=== PATIENT | male | born 1935 | race Two or more races ===

== ENCOUNTER 2016-06-05 19:45 | Inpatient (IN) | payer MEDICARE, OTHER ==
[~2016-06-05] VITALS: Ht 172.7 cm; Wt 100.0 kg
[2016-06-05] MEDS ORDERED: CEFEPIME 2GM/50 ML (PMX) 50 ML IVPB STA (19:48)
[2016-06-05] MEDS ORDERED: SOD CHLORIDE 0.9% 1,000 ML IV STA ×3 (19:48)
[2016-06-05 19:54] VITALS: Ht 172.7 cm; Wt 100.0 kg
[2016-06-05] MEDS ORDERED: VANCOMYCIN 1 GM (PMX) 250 ML IVPB ONE (20:00)
[2016-06-05] MEDS ORDERED: ACETAMINOPHEN 650 MG SUPP PR ONE (20:00)
[2016-06-05 20:39] LABS: ADD UMIC YES; INR 0.92; PARTIAL THROMBOPLASTIN TIME 27.8 Sec (25.0-35.0); PROTIME 12.4 Sec (12.2-14.2); URINE BILIRUBIN (Dip) NEGATIVE (NEGATIVE); URINE BLOOD (Dip) 3+ (NEGATIVE); URINE COLOR LT. YELLOW (YELLOW); URINE GLUCOSE (Dip) NEGATIVE (NEGATIVE); URINE KETONES (Dip) NEGATIVE (NEGATIVE); URINE LEUKOCYTE ESTERASE (Dip) NEGATIVE (NEGATIVE); URINE NITRITE (Dip) NEGATIVE (NEGATIVE); URINE TOTAL PROTEIN (Dip) NEGATIVE (NEGATIVE); URINE UROBILINOGEN (Dip) 0.2 E.U./dL (0.1-1.0)
[2016-06-05 20:40] LABS: BASOPHILS % 0.2 % (0.0-2.0); EOSINOPHILS # 0.2 10^3/ul (0.0-0.5); EOSINOPHILS % 2.2 % (0.0-7.0); HEMATOCRIT 34.5 % (42.0-52.0); HEMOGLOBIN 11.4 g/dl (14.0-18.0); LYMPHOCYTES # 2.1 10^3/ul (0.8-2.9); LYMPHOCYTES % 24.6 % (15.0-51.0); MEAN CORPUSCULAR HEMOGLOBIN 28.4 pg (29.0-33.0); MEAN CORPUSCULAR HGB CONC 33.1 g/dl (32.0-37.0); MEAN CORPUSCULAR VOLUME 85.8 fl (82.0-101.0); MEAN PLATELET VOLUME 8.7 fl (7.4-10.4); MONOCYTE # 0.7 10^3/ul (0.3-0.9); MONOCYTES % 8.5 % (0.0-11.0); NEUTROPHIL # 5.4 10^3/ul (1.6-7.5); NEUTROPHILS % 64.5 % (39.0-77.0); PLATELET COUNT 297 10^3/UL (140-440); RED BLOOD COUNT 4.01 10^6/ul (4.70-6.10); RED CELL DISTRIBUTION WIDTH 16.9 % (11.5-14.5); UNCORRECTED WBC 8.4 10^3/ul (4.8-10.8); WHITE BLOOD COUNT 8.4 10^3/ul (4.8-10.8)
[2016-06-05 20:41] LABS: CONDITION 1; LH ANALYZER COMMENTS 1
[2016-06-05 20:54] LABS: ALBUMIN 3.5 g/dl (3.3-4.9); BACTERIA,URINE RARE; CHLORIDE 99 mmol/L (97-110); POTASSIUM 3.6 mmol/L (3.5-5.1); SODIUM 140 mmol/L (135-144); SQUAMOUS EPITHELIAL CELL,UR RARE
[2016-06-05 20:56] LABS: CREATININE 1.23 mg/dl (0.61-1.24)
[2016-06-05 20:57] LABS: ALANINE AMINOTRANSFERASE 16 IU/L (13-69); ALBUMIN/GLOBULIN RATIO 0.97; ALKALINE PHOSPHATASE 71 IU/L (42-121); ANION GAP 20 (8-16); ASPARTATE AMINO TRANSFERASE 18 IU/L (15-46); BILIRUBIN,INDIRECT 0.3 mg/dl (0-1.1); BILIRUBIN,TOTAL 0.3 mg/dl (0.2-1.3); BLOOD UREA NITROGEN 16 mg/dl (7-20); CARBON DIOXIDE 25 mmol/L (21-31); GLUCOSE 273 mg/dl (70-220); TOTAL PROTEIN 7.1 g/dl (6.1-8.1)
[2016-06-05 20:58] LABS: CALCIUM 9.2 mg/dl (8.4-10.2)
[2016-06-05 21:29] LABS: TROPONIN-I < 0.012 ng/ml (0.00-0.12)
--- NOTE | 2016-06-05 22:18 | RADRPT ---
PROCEDURE: Chest. CLINICAL INDICATION: Chest pain. TECHNIQUE: Single frontal view of the chest was obtained. COMPARISON: None. FINDINGS: The cardiac silhouette is enlarged. The aortic arch is calcified. There is moderate pulmonary veno us congestion. There is mild bibasilar atelectasis and small pleural effusions. There is no pneumo thorax. IMPRESSION: Moderate cardiomegaly and pulmonary venous congestion. Mild bibasilar atelectasis and small pleural effusions. Aortic atherosclerosis. .Gerardo Edwards MD, MD Date Time Electronically viewed and signed by .Gerardo Edwards MD, on 06/05/2016 22:17 .T/
[2016-06-05] MEDS ORDERED: VANCOMYCIN IV PER PHARMACY XX SCH (22:30)
[2016-06-05] MEDS ORDERED: ONDANSETRON 4 MG INJ IV PRN ×2 (22:30→23:00)
[2016-06-05] MEDS ORDERED: FUROSEMIDE 20 MG INJ IV ONE (22:30)
[2016-06-05] MEDS ORDERED: ACETAMINOPHEN 325 MG TAB PO PRN (22:30)
--- NOTE | 2016-06-05 22:47 | HP ---
Date/Time of Note Date/Time of Note DATE: 06/05/16 TIME: 22:38 Assessment/Plan VTE Prophylaxis VTE Prophylaxis Intervention: LMWH Assessment/Plan Assessment/Plan 80 yo M with 1. Altered mentation Baseline unknown 2. acute resp failure 3. CHF exacerbation 4. Sepsis with lactic acidosis 5. Probable Bilateral pneumonia 6. Uncontrolled DM 7. Hypochromic anemia 8. 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 Obesity 10. HTN: Suboptimal control 11. probable UTI contributing to #4 12. CAD s/p PCI + stent in the past PLAN: admit tele / empiric abx / gentle diuresis / ACS r/o / 2D echo / acosta culture NPO for now till resp status improves / SSI / swallow eval / hold hypoglycemics while NPO pain control/ antiemetics/ antipyretics/ supportive care Further evaluation and treatment will be based on clinical course Full discussion with care team done. All questions Answered Please also see orders. Total time spent on this evaluation >35mins HPI/ROS Admit Date/Time Admit Date/Time 06/05/16 Hx of Present Illness PRESENTING COMPLAINT: confusion HISTORY OF PRESENTING COMPLAINT: 80 yo M who was brought in by his family because of confusion and was found to be hypoxic in the ER. He usually resides in a senior care. No other hx is obtainable d/t patient's mental status. He was saturating 88% on RA and required O2 via NRB mask at 15L to maintain his sats. ROS Subjective hx not possible: other (patient is confused) PMH/Family/Social Past Medical History * HTN * DM * CAD Past Surgical History * PCI + stent placement Family History Significant Family History: other (unknown) Social History Alcohol Use: other Smoking Status: Unknown if ever smoked Drug Use: none Exam/Review of Systems Vital Signs Vitals Vital Signs Date Time Temp Pulse Resp B/P Pulse Ox O2 Delivery O2 Flow Rate FiO2 06/05/16 20:00 Non Rebreather 15 06/05/16 19:54 100.3 101 22 152/95 95 Exam Constitutional: alert, other (obese, confused, will follow repeated commands), No oriented Psych: other (unable to assess) Eyes: PERRL ENMT: No mucosa pink and moist (dry) Neck: No jvd Respiratory: crackles/rales, diminished breath sounds, wheezing Cardiovascular: regular rate and rhythm, No murmurs/extra sounds Gastrointestinal: bowel sounds, other (Obese), soft Extremities: No edema Neurological: lethargic, No nl mental status Labs Result Diagram: 06/05/16200406/05/162004 Medications Medications Current Medications Miscellaneous Information (* Miscellaneous Pharmacy Order) HYPOGLYCEMIA PROTOCOL w... ONCE ONCE XX ; Start 06/05/16 at 22:30; Stop 06/05/16 at 22:31; Status UNV Miscellaneous Information Discontinue all previ... ONCE ONCE XX ; Start at 22:30; Stop 06/05/16 at 22:31; Status UNV Cefepime HCl (Maxipime 1gm/50 ml (Pmx)) 50 ml @ 100 mls/hr Q12 IVPB ; Start 06/06/16 at 09:00; Status UNV Furosemide 20 mg 20 mg ONCE ONCE IV ; Start 06/05/16 at 22:30; Stop 06/05/16 at 22:31; Status UNV Sodium Chloride (NS) 1,000 ml @ 80 mls/hr [id number] IV ; Start 06/05/16 at 22:30; Stop 06/06/16 at 17:14; Status UNV Acetaminophen (Tylenol Tab) 650 mg Q6H PRN PO PAIN AND OR ELEVATED TEMP; Start 06/05/16 at 22:30; Status UNV Docusate Sodium (Colace) 100 mg BID PO ; Start 06/06/16 at 09:00; Status UNV Procedures Procedures Laboratory Tests Test 06/05/16 20:05 06/05/16 22:05 06/05/16 22:40 06/05/16 23:43 Activated Partial Thromboplast Time 27.8Sec Alanine Aminotransferase (ALT/SGPT) 16IU/L Albumin 3.5g/dl Albumin/Globulin Ratio 0.97 Alkaline Phosphatase 71IU/L Anion Gap 20 Aspartate Amino Transf (AST/SGOT) 18IU/L Basophils # 0.010^3/ul Basophils % 0.2% Blood Morphology Comment Blood Urea Nitrogen 16mg/dl Calcium Level 9.2mg/dl Carbon Dioxide Level 25mmol/L Chloride Level 99mmol/L Creatinine 1.23mg/dl Direct Bilirubin 0.00mg/dl Eosinophils # 0.210^3/ul Eosinophils % 2.2% Free Thyroxine 1.15ng/dl Globulin 3.60g/dl Glucose Level 273mg/dl Hematocrit 34.5% Hemoglobin 11.4g/dl INR International Normalized Ratio 0.92 Indirect Bilirubin 0.3mg/dl Lactic Acid Level 2.4mmol/L 2.3mmol/L 1.5mmol/L Lymphocytes # 2.110^3/ul Lymphocytes % 24.6% Mean Corpuscular Hemoglobin 28.4pg Mean Corpuscular Hemoglobin Concent 33.1g/dl Mean Corpuscular Volume 85.8fl Mean Platelet Volume 8.7fl Monocytes # 0.710^3/ul Monocytes % 8.5% Neutrophils # 5.410^3/ul Neutrophils % 64.5% Nucleated Red Blood Cells # 0.010^3/ul Nucleated Red Blood Cells % 0.0/100WBC Platelet Count 75064^3/UL Potassium Level 3.6mmol/L Prothrombin Time 12.4Sec Prothrombin Time Ratio 1.0 Red Blood Count 4.0110^6/ul Red Cell Distribution Width 16.9% Sodium Level 140mmol/L Thyroid Stimulating Hormone (TSH) 3.240MIU/L Total Bilirubin 0.3mg/dl Total Protein 7.1g/dl Troponin I < 0.012ng/ml < 0.012ng/ml Urine Bacteria RARE Urine Bilirubin NEGATIVE Urine Clarity CLEAR Urine Color LT. YELLOW Urine Glucose NEGATIVE% Urine Hemoglobin 3+ Urine Ketones NEGATIVE Urine Leukocyte Esterase NEGATIVE Urine Microscopic RBC 5-10/HPF Urine Microscopic WBC 0-2/HPF Urine Nitrite NEGATIVE Urine Specific [place] 1.020 Urine Squamous Epithelial Cells RARE Urine Total Protein NEGATIVE Urine Urobilinogen 0.2 E.U./dL Urine pH 5.5 White Blood Count 8.410^3/ul Arterial Blood HCO3 23.5mmol/L Arterial Blood Base Excess -1.1mmol/L Arterial Blood Oxygen Saturation 93.9mmHG Rios Test ACCEPTAB Arterial Blood Gas Puncture Site Left Radial Arterial Blood Carboxyhemoglobin 0.3% Arterial Blood Date Drawn 06/06/2016 12:00:21 AM Arterial Blood Methemoglobin 0.1% Arterial Blood pCO2 (Temp correct) 38.7mmhg Arterial Blood pH (Temp corrected) 7.401 Arterial Blood pO2 (Temp corrected) 73.0mmHG Blood Gas A-a O2 Differential 160.5mmHg Blood Gas Modality NASAL CANNULA Blood Gas Notified Time 06/06/2016 12:12:21 AM Blood Gas Notified Whom ARIADNE Blood Gas Specimen Source Blood arterial Blood Gas Temperature 37.0C FiO2 39.0% Oxyhemoglobin Percent 93.5% Total Hemoglobin 11.2g/dl Creatine Kinase 22IU/L Creatine Kinase Index 2.0 Creatinine Kinase MB (Mass) 0.44ng/ml Test 06/06/16 05:45 06/06/16 07:33 Anion Gap Pending Blood Urea Nitrogen Pending Calcium Level Pending Carbon Dioxide Level Pending Chloride Level 101mmol/L Cholesterol Level Pending Cholesterol/HDL Ratio Pending Creatine Kinase 29IU/L Creatine Kinase Index 1.8 Creatinine Pending Creatinine Kinase MB (Mass) 0.52ng/ml Glucose Level Pending HDL Cholesterol Pending LDL Cholesterol, Calculated Pending Magnesium Level Pending Potassium Level 3.9mmol/L Sodium Level 142mmol/L Triglycerides Level Pending Troponin I < 0.012ng/ml Bedside Glucose 166mg/dL PROCEDURE: Chest. CLINICAL INDICATION: Chest pain. TECHNIQUE: Single frontal view of the chest was obtained. COMPARISON: None. FINDINGS: The cardiac silhouette is enlarged. The aortic arch is calcified. There is moderate pulmonary venous congestion. There is mild bibasilar atelectasis and small pleural effusions. There is no pneumothorax. IMPRESSION: Moderate cardiomegaly and pulmonary venous congestion. Mild bibasilar atelectasis and small pleural effusions. Aortic atherosclerosis. .Gerardo Edwards MD, Date Time Electronically viewed and signed by .Gerardo Edwards MD, MD on 06/05/2016 22:17 PROCEDURE: CT Brain without contrast. CLINICAL INDICATION: Sepsis.. TECHNIQUE: A CT of the brain was performed on a multislice detector CT scanner utilizing axial sections from the skull base through the vertex without contrast. Images were reviewed on a high-resolution PACS workstation. Exam CTDlvol = 45 mGy and DLP = 720 mGy-cm. COMPARISON: None available FINDINGS: There is age appropriate central and peripheral atrophy. There is no midline shift. There is confluent supratentorial periventricular and subcortical white matter hypodensities. There is no definite acute stroke. There old right basal ganglia thalamic lacunar infarcts.. There is no intracranial hemorrhage or abnormal extra-axial fluid collection. Visualized paranasal sinuses are clear. There is fluid in the right mastoid air cells. An old fracture of the medial wall of the right orbit. There is a 1.8 cm a cutaneous nodule in the anterior aspect of the right frontal region near the vertex, likely a cyst. IMPRESSION: 1. No acute intracranial abnormality. 2. Old right basal ganglia and thalamic lacunar infarcts. 3. Nonspecific white matter changes most commonly seen with microvascular ischemic disease. 4. Fluid in the right mastoid air cells. 5. Probable sebaceous cyst in the right frontal region near the vertex. RPTAT: HMVK .Scott Ayers MD, Date Time Electronically viewed and signed by .Scott Ayers MD, on 06/05/2016 23:36 EMANUEL ANTHONY Jun 05, 2016 22:46
[2016-06-05] MEDS ORDERED: ALBUTEROL/IPRATROPIUM (NEB) 3 ML AMP HHN PRN (23:00)
[2016-06-05] MEDS ORDERED: GLUCOSE GEL 15 GRAM TUBE BUCCAL PRN (23:30)
[2016-06-05] MEDS ORDERED: DEXTROSE 50% 50 ML SYRINGE IV PRN ×2 (23:30)
[2016-06-05] MEDS ORDERED: GLUCOSE GEL 15 GRAM TUBE PO PRN ×2 (23:30)
[2016-06-05] MEDS ORDERED: GLUCAGON 1 MG INJ IM PRN (23:30)
--- NOTE | 2016-06-05 23:37 | RADRPT ---
PROCEDURE: CT Brain without contrast. CLINICAL INDICATION: Sepsis.. TECHNIQUE: A CT of the brain was performed on a multislice detector CT scanner utilizing axial sec tions from the skull base through the vertex without contrast. Images were reviewed on a high-resolu [employer] PACS workstation. Exam CTDlvol = 45 mGy and DLP = 720 mGy-cm. COMPARISON: None available FINDINGS: There is age appropriate central and peripheral atrophy. There is no midline shift. There is confl uent supratentorial periventricular and subcortical white matter hypodensities. There is no definit e acute stroke. There old right basal ganglia thalamic lacunar infarcts.. There is no intracranial hemorrhage or abnormal extra-axial fluid collection. Visualized paranasal sinuses are clear. There is fluid in the right mastoid air cells. An old fracture of the medial wall of the right orbit. Th ere is a 1.8 cm a cutaneous nodule in the anterior aspect of the right frontal region near the verte x, likely a cyst. IMPRESSION: 1. No acute intracranial abnormality. 2. Old right basal ganglia and thalamic lacunar infarcts. 3. Nonspecific white matter changes most commonly seen with microvascular ischemic disease. 4. Fluid in the right mastoid air cells. 5. Probable sebaceous cyst in the right frontal region near the vertex. RPTAT: HMVK .Scott Ayers MD, Date Time Electronically viewed and signed by .Scott Ayers MD, MD on 06/05/2016 23:36 .K/
[2016-06-05 23:50] VITALS: BP 145/70; PULSE 84; RESP 22
[2016-06-06] VITALS (10 sets, daily range): BP systolic 134–175; BP diastolic 65–81; PULSE 78–92; RESP 16–20
[2016-06-06 00:01] LABS: CREATINE KINASE 22 IU/L (23-200)
--- NOTE | 2016-06-06 00:01 | ERA ---
ER Documentation Chief Complaint Date/Time DATE: 06/05/16 TIME: 23:58 Chief Complaint ALOC per family report to EMS, desaturation 88% on RA,from [facility] Patient is a 80-year-old male with diabetes who presents altered and hypoxic. Please note the history and physical exam is limited secondary to the patient's mental status at this time. The patient was brought in by ambulance. His oxygen saturation was 88% in a nursing facility. He has had worsening confusion over the past 2 days. He has no fevers. He was given albuterol at the nursing facility. I cannot obtain history otherwise. ROS All systems reviewed and are negative except as per history of present illness. Allergies Allergies: Coded Allergies: No Known Allergy (Unverified , 06/05/16) PMhx/Soc History of Surgery: No Anesthesia Reaction: No Hx Neurological Disorder: No Hx Respiratory Disorders: No Hx Cardiac Disorders: Yes (CAD-hx of stent.) Hx Psychiatric Problems: No Hx Miscellaneous Medical Probl: Yes (HTN, DM) Hx Alcohol Use: No Hx Substance Use: No Hx Tobacco Use: No Smoking Status: Never smoker FmHx Unable to obtain Physical Exam Vitals Vital Signs Date Time Temp Pulse Resp B/P Pulse Ox O2 Delivery O2 Flow Rate FiO2 06/05/16 20:00 Non Rebreather 15 06/05/16 19:54 100.3 101 22 152/95 95 Physical Exam Const: Altered Head: Atraumatic Eyes: Normal Conjunctiva ENT: Normal External Ears, Nose and Mouth. Neck: Full range of motion..~ No meningismus. Resp: Clear to auscultation bilaterally Cardio: Regular rate and rhythm, no murmurs Abd: Soft, non tender, non distended. Normal bowel sounds Skin: No petechiae or rashes Back: No midline or flank tenderness Ext: No cyanosis, or edema Neur: Awake but does not follow commands at this time Result Diagram: 06/05/16200406/05/162004 Results 24 hrs Laboratory Tests Test 06/05/16 20:05 06/05/16 22:05 Activated Partial Thromboplast Time 27.8Sec Alanine Aminotransferase (ALT/SGPT) 16IU/L Albumin 3.5g/dl Albumin/Globulin Ratio 0.97 Alkaline Phosphatase 71IU/L Anion Gap 20 Aspartate Amino Transf (AST/SGOT) 18IU/L Basophils # 0.010^3/ul Basophils % 0.2% Blood Morphology Comment Blood Urea Nitrogen 16mg/dl Calcium Level 9.2mg/dl Carbon Dioxide Level 25mmol/L Chloride Level 99mmol/L Creatinine 1.23mg/dl Direct Bilirubin 0.00mg/dl Eosinophils # 0.210^3/ul Eosinophils % 2.2% Free Thyroxine 1.15ng/dl Globulin 3.60g/dl Glucose Level 273mg/dl Hematocrit 34.5% Hemoglobin 11.4g/dl INR International Normalized Ratio 0.92 Indirect Bilirubin 0.3mg/dl Lactic Acid Level 2.4mmol/L 2.3mmol/L Lymphocytes # 2.110^3/ul Lymphocytes % 24.6% Mean Corpuscular Hemoglobin 28.4pg Mean Corpuscular Hemoglobin Concent 33.1g/dl Mean Corpuscular Volume 85.8fl Mean Platelet Volume 8.7fl Monocytes # 0.710^3/ul Monocytes % 8.5% Neutrophils # 5.410^3/ul Neutrophils % 64.5% Nucleated Red Blood Cells # 0.010^3/ul Nucleated Red Blood Cells % 0.0/100WBC Platelet Count 02603^3/UL Potassium Level 3.6mmol/L Prothrombin Time 12.4Sec Prothrombin Time Ratio 1.0 Red Blood Count 4.0110^6/ul Red Cell Distribution Width 16.9% Sodium Level 140mmol/L Thyroid Stimulating Hormone (TSH) 3.240MIU/L Total Bilirubin 0.3mg/dl Total Protein 7.1g/dl Troponin I < 0.012ng/ml Urine Bacteria RARE Urine Bilirubin NEGATIVE Urine Clarity CLEAR Urine Color LT. YELLOW Urine Glucose NEGATIVE% Urine Hemoglobin 3+ Urine Ketones NEGATIVE Urine Leukocyte Esterase NEGATIVE Urine Microscopic RBC 5-10/HPF Urine Microscopic WBC 0-2/HPF Urine Nitrite NEGATIVE Urine Specific [place] 1.020 Urine Squamous Epithelial Cells RARE Urine Total Protein NEGATIVE Urine Urobilinogen 0.2 E.U./dL Urine pH 5.5 White Blood Count 8.410^3/ul Current Medications Medications (Trade) Dose Ordered Sig/Arelis Route PRN Reason Start Time Stop Time Status Last Admin Dose Admin Cefepime HCl 50 ml @ 100 mls/hr ONCE STAT IVPB 06/05/16 19:48 06/05/16 20:17 DC 06/05/16 20:59 Vancomycin HCl 250 ml @ 125 mls/hr ONCE ONCE IVPB 06/05/16 20:00 06/05/16 21:59 DC 06/05/16 21:24 Sodium Chloride 1,000 ml @ 1,000 mls/hr Q1H STAT IV 06/05/16 19:48 06/05/16 20:47 DC 06/05/16 21:00 Sodium Chloride 1,000 ml @ 1,000 mls/hr Q1H STAT IV 06/05/16 19:48 06/05/16 20:47 DC 06/05/16 21:26 Sodium Chloride (NS) 1,000 ml @ 1,000 mls/hr Q1H STAT IV 06/05/16 19:48 06/05/16 20:47 DC Acetaminophen (Tylenol Supp) 650 mg ONCE ONCE DE 06/05/16 20:00 06/05/16 20:01 DC 06/05/16 21:23 Procedures/MDM Chest X-ray 1V Interpreted by me: Soft Tissue: No acute abnormalities Bones: No acute abnormalities Mediastinum/Cardiac Silhouette/Lungs: Left lower lobe pneumonia Admit MDM: Patient's infectious symptoms have not stabilized and the patient is at risk of rapid decompensation. The patient will be admitted for careful hydration, antibiotic therapy, and infectious source control. Severe Sepsis criteria: Infectious source: Pneumonia End organ damage indicated by: Lactate greater than 2 Sepsis Management: Time of recognition of sepsis: 20:05 Within 3 hours of recognition: Blood cultures x 2 before broad-spectrum antibiotics: Yes 30 ml/kg NS bolus Completed Initial lactate 2.4 Repeat lactate 2.3 Time of recognition of septic shock: No septic shock Septic Shock Assessment: Any lactic acid > 4.0 No Persistent hypotension (SBP < 90 or 40 mmHg drop, MAP < 65) despite 30 mL/kg IV fluid bolus No Volume Re-assessment for Septic Shock (post 30 ml/kg bolus): No septic shock at this time Persistent Hypotension Treatment: Comfort care No Central line Not Required Vasopressor started Not required I considered further perfusion assessment with CVP measurement, SCVO2, bedside ultrasound volume assessment, passive leg raise, trial of further fluid bolus. And proceeded with 30 ml/kg fluid bolus of NSS, broad spectrum antibiotics, and admission. Accepting Care Team Current data and ongoing care discussed. Admitting Physician: Dr. De Souza Lockmaker(s): None Outstanding Data: Culture results Critical Care: Critical care time 35 minutes excluding all billable procedures Emergent fluid management while maintaining close respiratory support. Provision of immediate and broad-spectrum antibiotic therapy. Simultaneous assessment for possible sources in order to direct targeted therapy. Consideration for invasive and chemical support to prevent cardiopulmonary collapse. Departure Diagnosis: Primary Impression: Severe sepsis Additional Impressions: Pneumonia Qualified Code: J18.9 - Pneumonia due to infectious organism, unspecified laterality, unspecified part of lung Altered level of consciousness Condition: Serious GENOVEVA LOZA MD Jun 06, 2016 00:00
[2016-06-06 00:12] LABS: AADO2 Arterial 160.5 mmHg (7.0-24.0); Allen Test ACCEPTAB; Arterial Base Excess -1.1 mmol/L (-3.0-3); Arterial COHb 0.3 % (0.0-3.0); Arterial Fraction of Oxyhgb 93.5 % (93.0-99.0); Arterial HCO3 23.5 mmol/L (22.0-26.0); Arterial MetHb 0.1 % (0.0-1.5); Arterial Total Hemglobin 11.2 g/dl (12.0-18.0); MODE NASAL CANNULA
[2016-06-06] MEDS: SOD CHLORIDE 0.9% 1,000 ML IV SCH ×3 (00:20→15:39)
[2016-06-06 00:25] LABS: CK-MB 0.44 ng/ml (0.0-2.4); TROPONIN-I < 0.012 ng/ml (0.00-0.12)
[2016-06-06] MEDS: ALBUTEROL/IPRATROPIUM (NEB) 3 ML AMP HHN SCH ×6 (01:23→21:09)
[2016-06-06] MEDS: ACCUCHECK AT 2AM (Patients on SS coverage) XX SCH (02:00)
[2016-06-06] MEDS: VANCOMYCIN 1.5 GM in SOD CHLORIDE 0.9% 250 ML IVPB SCH (06:30)
[2016-06-06 07:57] LABS: CREATINE KINASE 29 IU/L (23-200)
[2016-06-06] MEDS: INSULIN ASPART [NOVOLOG] 3 ML PEN SC SCH ×4 (08:00→21:00)
[2016-06-06 08:01] LABS: CK-MB 0.52 ng/ml (0.0-2.4)
[2016-06-06 08:03] LABS: POTASSIUM 3.9 mmol/L (3.5-5.1)
[2016-06-06 08:04] LABS: TROPONIN-I < 0.012 ng/ml (0.00-0.12)
[2016-06-06 08:05] LABS: CREATININE 1.12 mg/dl (0.61-1.24)
[2016-06-06 08:06] LABS: MAGNESIUM 1.3 mg/dl (1.7-2.5)
[2016-06-06 08:07] LABS: CHOL/HDL RATIO 5.6 RATIO
[2016-06-06 08:46] LABS: IRON 24 ug/dl (35-150)
[2016-06-06 08:55] LABS: TOTAL IRON BINDING CAPACITY 220 ug/dl (241-421)
--- NOTE | 2016-06-06 09:45 | RADRPT ---
PROCEDURE: US Lower extremity Venous. CLINICAL INDICATION: Bilateral lower extremity swelling TECHNIQUE: Multiple sonographic images of the bilateral lower extremity deep venous system was obt ained utilizing grayscale, color-flow, compressive sonography and doppler imaging with augmentation. The images were reviewed on a PACS workstation. COMPARISON: None. FINDINGS: There is normal compressibility and flow within the bilateral common femoral, superficial femoral , posterior tibial and popliteal veins. RPTAT: AA IMPRESSION: No sonographic evidence for deep venous thrombosis. .Gomez Hou MD, MD Date Time Electronically viewed and signed by .Gomez Hou MD, on 06/06/2016 09:44 .S/
[2016-06-06] MEDS: DOCUSATE SODIUM 100 MG CAP PO SCH ×2 (09:59→22:20)
[2016-06-06] MEDS: ASPIRIN (EC) 81 MG TAB PO SCH (09:59)
[2016-06-06] MEDS: FAMOTIDINE 20 MG TAB PO SCH ×2 (09:59→22:21)
[2016-06-06] MEDS: ENOXAPARIN 40 MG/0.4 ML SYG SC SCH (10:07)
[2016-06-06] MEDS: CEFEPIME 1GM/50 ML (PMX) 50 ML IVPB SCH ×2 (11:34→22:20)
[2016-06-06] MEDS ORDERED: FUROSEMIDE 40 MG INJ IV ONE (12:00)
--- NOTE | 2016-06-06 12:13 | PN ---
Date/Time of Note Date/Time of Note DATE: 06/06/16 TIME: 12:08 Assessment/Plan VTE Prophylaxis VTE Prophylaxis Intervention: LMWH Lines/Catheters IV Catheter Type (from [facility] Saline Lock Urinary Cath still in place: No Assessment/Plan Problems: (1) BPH (benign prostatic hypertrophy) with urinary obstruction Status: Chronic Comment: Continue his tamsulosin but check the postvoid residual with bladder scan (2) Hyperlipidemia associated with type 2 diabetes mellitus Status: Chronic Comment: Continue his medications for this. (3) Iron deficiency anemia Status: Chronic Comment: Continue her replacement therapy. This will need to be worked up as an outpatient Qualifiers: Iron deficiency anemia type: unspecified iron deficiency Qualified Code: D50.9 - Iron deficiency anemia, unspecified iron deficiency anemia type (4) Hypothyroidism (acquired) Status: Chronic Comment: Continue on the medications (5) Diabetes mellitus type 2 in obese Status: Acute Comment: Continue on medications follow the sliding scales (6) Altered level of consciousness Status: Chronic Comment: This is very likely be a chronic situation. We will continue to work with him. (7) Severe sepsis Status: Acute Comment: Lactic acidosis is resolving. Please note that chest x-ray is consistent with CHF not pneumonia the urinalysis is negative the cultures are negative. Continue antibiotics however I suspect are dealing with a multifactorial thing as opposed to an overwhelming infection Subjective 24 Hr Interval Summary Free Text/Dictation Elderly [place] gentleman lying in bed. Please note he is a long-term ECF resident and according to what limited information I could rodriguez he has limited ability to communicate Subjective hx not possible: pt non-verbal Exam/Review of Systems Vital Signs Vitals Vital Signs Date Time Temp Pulse Resp B/P Pulse Ox O2 Delivery O2 Flow Rate FiO2 06/06/16 12:01 78 06/06/16 11:47 97.7 17 142/78 97 06/06/16 09:30 Nasal Cannula 6.0 06/06/16 05:46 45 Intake and Output 06/05/16 06/05/16 06/06/16 15:00 23:00 07:00 Intake Total 480 ml Output Total 1200 ml Balance -720 ml Exam Vaguely arousable does not follow commands may be a language barrier Neck: non-tender, supple Respiratory: crackles/rales, normal air movement Cardiovascular: S3, nl pulses, regular rate and rhythm Gastrointestinal: nl liver, spleen, non-tender, soft Extremities: edema (2+ edema) Results Result Diagram: 06/05/16200406/06/16 0545 Results 24 hrs Laboratory Tests Test 06/05/16 20:05 06/05/16 22:05 06/05/16 22:40 06/05/16 23:43 Activated Partial Thromboplast Time 27.8 Alanine Aminotransferase (ALT/SGPT) 16 Albumin 3.5 Albumin/Globulin Ratio 0.97 Alkaline Phosphatase 71 Anion Gap 20 H Aspartate Amino Transf (AST/SGOT) 18 Basophils # 0.0 Basophils % 0.2 Blood Morphology Comment Blood Urea Nitrogen 16 Calcium Level 9.2 Carbon Dioxide Level 25 Chloride Level 99 Creatinine 1.23 Direct Bilirubin 0.00 Eosinophils # 0.2 Eosinophils % 2.2 Free Thyroxine 1.15 Globulin 3.60 H Glucose Level 273 H Hematocrit 34.5 L Hemoglobin 11.4 L INR International Normalized Ratio 0.92 Indirect Bilirubin 0.3 Lactic Acid Level 2.4 H 2.3 H 1.5 Lymphocytes # 2.1 Lymphocytes % 24.6 Mean Corpuscular Hemoglobin 28.4 L Mean Corpuscular Hemoglobin Concent 33.1 Mean Corpuscular Volume 85.8 Mean Platelet Volume 8.7 Monocytes # 0.7 Monocytes % 8.5 Neutrophils # 5.4 Neutrophils % 64.5 Nucleated Red Blood Cells # 0.0 Nucleated Red Blood Cells % 0.0 Platelet Count 297 Potassium Level 3.6 Prothrombin Time 12.4 Prothrombin Time Ratio 1.0 Red Blood Count 4.01 L Red Cell Distribution Width 16.9 H Sodium Level 140 Thyroid Stimulating Hormone (TSH) 3.240 Total Bilirubin 0.3 Total Protein 7.1 Troponin I < 0.012 < 0.012 Urine Bacteria RARE Urine Bilirubin NEGATIVE Urine Clarity CLEAR Urine Color LT. YELLOW Urine Glucose NEGATIVE Urine Hemoglobin 3+ H Urine Ketones NEGATIVE Urine Leukocyte Esterase NEGATIVE Urine Microscopic RBC 5-10 Urine Microscopic WBC 0-2 Urine Nitrite NEGATIVE Urine Specific [place] 1.020 Urine Squamous Epithelial Cells RARE Urine Total Protein NEGATIVE Urine Urobilinogen 0.2 E.U./dL Urine pH 5.5 White Blood Count 8.4 Arterial Blood HCO3 23.5 Arterial Blood Base Excess -1.1 Arterial Blood Oxygen Saturation 93.9 L Rios Test ACCEPTAB Arterial Blood Gas Puncture Site Left Radial Arterial Blood Carboxyhemoglobin 0.3 Arterial Blood Date Drawn 06/06/2016 12:00:21 AM Arterial Blood Methemoglobin 0.1 Arterial Blood pCO2 (Temp correct) 38.7 Arterial Blood pH (Temp corrected) 7.401 Arterial Blood pO2 (Temp corrected) 73.0 L Blood Gas A-a O2 Differential 160.5 H Blood Gas Modality NASAL CANNULA Blood Gas Notified Time 06/06/2016 12:12:21 AM Blood Gas Notified Whom MA Blood Gas Specimen Source Blood arterial Blood Gas Temperature 37.0 FiO2 39.0 Oxyhemoglobin Percent 93.5 Total Hemoglobin 11.2 L Creatine Kinase 22 L Creatine Kinase Index 2.0 Creatinine Kinase MB (Mass) 0.44 Test 06/06/16 05:45 06/06/16 07:33 06/06/16 11:42 Anion Gap 15 Blood Urea Nitrogen 14 Calcium Level 9.0 Carbon Dioxide Level 30 Chloride Level 101 Cholesterol Level 191 Cholesterol/HDL Ratio 5.6 Creatine Kinase 29 Creatine Kinase Index 1.8 Creatinine 1.12 Creatinine Kinase MB (Mass) 0.52 Glucose Level 156 # HDL Cholesterol 34 Hemoglobin A1c 7.7 H Iron Level 24 L LDL Cholesterol, Calculated 123 Magnesium Level 1.3 L Percent Iron Saturation 11 L Potassium Level 3.9 Sodium Level 142 Total Iron Binding Capacity 220 L Triglycerides Level 169 H Troponin I < 0.012 Bedside Glucose 166 160 Medications Medications Current Medications Cefepime HCl 50 ml @ 100 mls/hr Q12 IVPB Last administered on 06/06/16 11:34; Admin Dose 100 MLS/HR; Start 06/06/16 at 09:00 Sodium Chloride (NS) 1,000 ml @ 80 mls/hr [id number] IV Last administered on 00:20; Admin Dose 80 MLS/HR; Start 06/05/16 at 22:30; Stop 06/06/16 at 17:14 Acetaminophen (Tylenol Tab) 650 mg Q6H PRN PO PAIN AND OR ELEVATED TEMP; Start 06/05/16 at 22:30 Docusate Sodium (Colace) 100 mg BID PO Last administered on 06/06/16 09:59; Admin Dose 100 MG; Start 06/06/16 at 09:00 Aspirin (Halfprin) 81 mg DAILY PO Last administered on 06/06/16 09:59; Admin Dose 81 MG; Start 06/06/16 at 09:00 Enoxaparin Sodium (Lovenox) 40 mg DAILY SC Last administered on 06/06/16 10:07 ; Admin Dose 40 MG; Start 06/06/16 at 09:00 Famotidine (Pepcid) 20 mg BID PO Last administered on 06/06/16 09:59; Admin Dose 20 MG; Start 06/06/16 at 09:00 Ondansetron HCl (Zofran Inj) 4 mg Q6H PRN IV NAUSEA AND/OR VOMITING; Start 06/05 at 23:00 Diagnostic Test (Pha) (Accucheck) 1 ea 02 XX ; Start 06/06/16 at 02:00 Miscellaneous Information 1 ea NOTE XX ; Start 06/05/16 at 23:30 Glucose (Glutose) 15 gm Q15M PRN PO DECREASED GLUCOSE; Start 06/05/16 at 23:30 Glucose (Glutose) 22.5 gm Q15M PRN PO DECREASED GLUCOSE; Start 06/05/16 at 23:30 Dextrose (D50w Syringe) 25 ml Q15M PRN IV DECREASED GLUCOSE; Start 06/05/16 at 23:30 Dextrose (D50w Syringe) 50 ml Q15M PRN IV DECREASED GLUCOSE; Start 06/05/16 at 23:30 Glucagon (Glucagen) 1 mg Q15M PRN IM DECREASED GLUCOSE; Start 06/05/16 at 23:30 Glucose 15 gm 15 gm Q15M PRN BUCCAL DECREASED GLUCOSE; Start 06/05/16 at 23:30 Vancomycin HCl/ Sodium Chloride (Vancocin/NS) 250 ml @ 83.333 mls/ hr Q24H IVPB Last administered on 06/06/16 06:30; Admin Dose 83.333 MLS/HR; Start at 06:00 CAREY HOUSER MD Jun 06, 2016 12:13
[2016-06-06] MEDS ORDERED: MAGNESIUM SULFATE 4 GM/100 ML 100 ML IVPB ONE (15:00)
[2016-06-06] MEDS: ACETAMINOPHEN 325 MG TAB PO PRN (15:47)
--- NOTE | 2016-06-06 22:10 | RADRPT ---
Echocardiogram Report Patient Name: DAQUAN GARDINER Gender: Male Date: 1935 Study Date: 06-Jun-2016 Apple Checker: Casey Castaneda [facility] Location: [id number] Ref. Physician: EMANUEL ANTHONY Quality: Good Procedures: Transthoracic echocardiogram with complete 2D, M-Mode, and doppler examination. Indications: Congestive Heart Failure. 2D/M Mode Doppler Measurement Value Normal Ranges Measurement Value Normal Ranges LVIDd 2D 4.4 3.5 - 5.6 cm AV Mean Wili 1.3 m/sec LVPWd 2D 1.1 0.6 - 1.1 cm AV Peak PG 7.0 mmHg IVSd 2D 1.1 0.6 - 1.1 cm LVOT Peak Wili 1.0 m/sec AoR Diam 2D 3.9 2.0 - 3.7 cm LVOT Peak PG 4.0 mmHg LA Dimen 2D 4.8 2.3 - 4.0 cm MV E Peak Wili 0.6 m/sec MV E Peak PG 1.0 mmHg MV A Peak Wili 0.8 m/sec MV A Peak PG 2.0 mmHg Lateral E/E` 8.5 TR Peak PG 13.0 mmHg RVSP 16.0 mmHg Findings Left Ventricle: Normal left ventricular systolic function. Normal left ventricular cavity size. Mild concentric left ventricular hypertrophy. Ejection fraction is visually estimated at 65 %. Tissue Doppler/Mitral Doppler indices are consistent with impaired relaxation (Stage I diastolic dysfunction). Right Ventricle: Normal right ventricular size. Normal right ventricular systolic function. Left Atrium: There is moderate enlargement of left atrium. Right Atrium: The right atrium is normal in size. Mitral Valve: Mitral valve leaflets appear mildly thickened. Mild mitral annular calcification. Trace mitral regurgitation. Aortic Valve: No hemodynamically significant aortic stenosis by doppler. Aortic cusps appear mildly calcified. Trace aortic valve regurgitation. Tricuspid Valve: Normal appearance of the tricuspid valve. Estimated peak PA systolic pressure 16 mmHg. There is trace tricuspid regurgitation. Pericardium: Normal pericardium with no significant pericardial effusion. Aorta: Normal aortic root. IVC: Normal size and normal respiratory collapse consistent with normal right atrial pressure. Conclusions Normal left ventricular systolic function. Normal left ventricular cavity size. Mild concentric left ventricular hypertrophy. Ejection fraction is visually estimated at 65 %. Tissue Doppler/Mitral Doppler indices are consistent with impaired relaxation (Stage I diastolic dysfunction). Normal right ventricular size. Normal right ventricular systolic function. There is moderate enlargement of left atrium. The right atrium is normal in size. No significant valvular stenosis or regurgitation seen. Normal pericardium with no significant pericardial effusion. Electronically Signed By: Scott Toney 06-Jun-2016 22:09:49 -0800 Patient Name: DAQAUN GARDINER Study Date: 06-Jun-2016 [id number]
[2016-06-06] MEDS: FERROUS FUMARATE (SR) TAB PO SCH (22:20)
[2016-06-06] MEDS: METOPROLOL (XL) 25 MG TAB PO SCH (22:21)
[2016-06-06] MEDS: ATORVASTATIN 40 MG TAB PO SCH (22:21)
[2016-06-06] MEDS: TAMSULOSIN (SR) 0.4 MG CAP PO SCH (22:21)
[2016-06-06] MEDS: LOSARTAN 50 MG TAB PO SCH (22:24)
[2016-06-07] VITALS (12 sets, daily range): BP systolic 107–177; BP diastolic 56–80; PULSE 57–92; RESP 18–20
[2016-06-07] MEDS: ACCUCHECK AT 2AM (Patients on SS coverage) XX SCH (02:00)
[2016-06-07] MEDS: VANCOMYCIN 1.5 GM in SOD CHLORIDE 0.9% 250 ML IVPB SCH (05:44)
[2016-06-07] MEDS: LEVOTHYROXINE 100 MCG TAB PO SCH (05:45)
[2016-06-07 06:52] LABS: POTASSIUM 4.1 mmol/L (3.5-5.1)
[2016-06-07 06:54] LABS: CREATININE 1.22 mg/dl (0.61-1.24)
[2016-06-07 06:55] LABS: CALCIUM 8.9 mg/dl (8.4-10.2)
[2016-06-07] MEDS: METOPROLOL (XL) 25 MG TAB PO SCH ×2 (08:03→20:46)
[2016-06-07] MEDS: FERROUS FUMARATE (SR) TAB PO SCH ×2 (08:03→20:46)
[2016-06-07] MEDS: CLOPIDOGREL 75 MG TAB PO SCH (08:03)
[2016-06-07] MEDS: ASPIRIN (EC) 81 MG TAB PO SCH (08:04)
[2016-06-07] MEDS: LOSARTAN 50 MG TAB PO SCH ×2 (08:04→20:47)
[2016-06-07] MEDS: FAMOTIDINE 20 MG TAB PO SCH ×2 (08:04→20:46)
[2016-06-07] MEDS: INSULIN ASPART [NOVOLOG] 3 ML PEN SC SCH ×4 (08:05→20:47)
[2016-06-07] MEDS: ENOXAPARIN 40 MG/0.4 ML SYG SC SCH (08:05)
[2016-06-07] MEDS: CEFEPIME 1GM/50 ML (PMX) 50 ML IVPB SCH ×2 (08:13→20:45)
[2016-06-07] MEDS: DOCUSATE SODIUM 100 MG CAP PO SCH ×2 (08:14→20:45)
[2016-06-07] MEDS: FUROSEMIDE 40 MG TAB PO SCH (08:17)
[2016-06-07] MEDS: ACETAMINOPHEN 325 MG TAB PO PRN (12:37)
[2016-06-07] MEDS ORDERED: FENTAnyl 50 MCG/ML VIAL ONE (14:12)
[2016-06-07] MEDS ORDERED: MIDAZOLAM 1 MG/ML 2 ML INJ ONE (14:12)
[2016-06-07] MEDS ORDERED: SOD CHLORIDE 0.9% 0 ML ONE (14:12)
[2016-06-07] MEDS ORDERED: LIDOCAINE 1% (MDV) 20 ML INJ ONE (14:12)
[2016-06-07] MEDS ORDERED: ATOR40TA68 PO (14:42)
[2016-06-07] MEDS ORDERED: ASPI-664 PO (14:42)
--- NOTE | 2016-06-07 14:42 | PDOCDIS ---
Discharge Instructions CONDITION Patient Condition: Stable HOME CARE INSTRUCTIONS: Special Diet: SIGIFREDO Pendleton MD Jun 07, 2016 14:41
[2016-06-07] MEDS ORDERED: CEFTRIAXONE 1 GM/50 ML (PMX) 50 ML IVPB ONE (16:30)
[2016-06-07 16:45] LABS: AADO2 Arterial 49.8 mmHg (7.0-24.0); Allen Test ACCEPTAB; Arterial Base Excess 1.7 mmol/L (-3.0-3); Arterial COHb 0.3 % (0.0-3.0); Arterial Fraction of Oxyhgb 83.6 % (93.0-99.0); Arterial HCO3 26.6 mmol/L (22.0-26.0); Arterial MetHb 0 % (0.0-1.5); Arterial Total Hemglobin 11.6 g/dl (12.0-18.0); MODE ROOM AIR
--- NOTE | 2016-06-07 17:51 | DS ---
DATE OF ADMISSION: 06/05/2016 DATE OF DISCHARGE: 06/07/2016 CONSULTANTS: None. PROCEDURES: A 2-D echocardiogram which demonstrated normal left ventricle systolic function. Lidia l left ventricular cavity size. Mild conservative left ventricular hypertrophy. Ejection fraction visually estimated at 65%. Stage I diastolic dysfunction. Moderate enlargement of left atrium. No significant valvular stenosis or regurgitation seen. Normal pericardium with no significant perica rdial effusion. DISCHARGE DIAGNOSES 1. Pneumonia. The patient will discharge on Levaquin and Keflex. 2. Systemic inflammatory response syndrome secondary to #1, resolved. 3. Dyslipidemia. Continue statin. 4. History of coronary artery disease. Continue Plavix, aspirin and statin. 5. Diabetes mellitus on metformin. 6. Hypertension, well controlled on losartan and metoprolol. 7. Hypothyroidism. Continue Synthroid. 8. Benign prostatic hypertrophy. Continue Flomax. MEDICATIONS: 1. Tylenol. 2. DuoNeb. 3. Aspirin 81 mg. 4. Lipitor 40 mg. 5. Plavix 75 mg. 6. Famotidine 20 mg. 7. Lasix 40 mg. 8. Levothyroxine 200 mcg 9. Losartan 50 mg. 10. Metoprolol XL 25 mg. 11. Flomax 0.4 mg. 12. Metformin 500 mg 13. Rocephin 1 gram IV q.24h. 14. Levaquin 500 mg p.o. daily. DIET: Pureed, low salt. ALLERGIES: NO KNOWN DRUG ALLERGIES. DISPOSITION: To longterm facility. Labs today: Sodium 143, potassium 4.1, chloride 99, bica rbonate 31, BUN 14, creatinine 1.22, glucose 167, calcium 8.9, magnesium 2.2. HOSPITAL COURSE: This is a 80-year-old gentleman with past medical history of congestive heart fail ure, diabetes mellitus, anemia and previous CVA, obesity, hypertension, coronary artery disease stat us post PCI, diabetes mellitus, hypothyroidism who resides at longterm facility. He was brou ght into the [facility] having worsening altered mental status and confusio n and was found to be hypoxic in the ER. His oxygen saturation was found to be 85% on room air. He was placed on oxygen, breathing treatment. His chest x-ray demonstrated moderate cardiomegaly with pulmonary venous congestion, mild basilar atelectasis, small pleural effusion and aortic atheroscle rosis. Patient was placed on cefepime and vancomycin. In the course of emergency room, his lactic acid was found to be elevated at 2.4. He was placed insulin sliding scale for his history of hypert ension. The patient was continued on his home medication, losartan and metoprolol. His blood press ure is better controlled at this time. Regarding his diabetes mellitus, the patient was placed on i nsulin sliding scale, low carb and low salt diet. Regarding his hypothyroidism, the patient was con tinued on levothyroxine. The patient has a history of coronary artery disease and was continued on aspirin, statin, beta linda and Plavix. Regarding his history of anemia, he was continued on ferr ous sulfate. At this time, his blood pressure is found to be mildly on the high side; therefore, hi s metoprolol from 25 mg will be increased. Metoprolol-XL will be increased from 25 mg to 50 mg. Hi s Losartan will be continued the same dose of 50 mg b.i.d. He was continued on IV antibiotics. His WBC has normalized. His lactic acid was normal. He is afebrile. At this time, the patient is med ically stable to be transferred back to longterm facility for IV Rocephin x7 days and Levaqui n. CONDITION: Stable. Dictated By: SIGIFREDO KAUR/ERNESTO Conf#: [id number] DID#: [id number]
--- NOTE | 2016-06-07 20:11 | CONS ---
DATE OF ADMISSION: 06/05/2016 DATE OF CONSULTATION: 06/07/2016 TYPE OF CONSULTATION: Urology. REQUESTING PHYSICIAN: Dr. Giordano HISTORY OF PRESENT ILLNESS: This is a 80-year-old [place] male who was initially brought to the [facility] because of altered mental status and was found to have a desaturation. [facility], was diagnosed with sepsis with lactic acidosis. The patient, himself, is not capable of giving any history. I reviewed his medical record. The patient apparently today has not voided an d attempts by the nursing staff to insert a Crabtree catheter were not successful. Therefore, a urolog ical consultation was requested. PAST MEDICAL HISTORY: Includes a history of recent pneumonia, systemic inflammatory response syndro me secondary to the pneumonia, dyslipidemia, history of coronary artery disease, status post coronar y artery intervention, history of diabetes mellitus on metformin, anemia, prior cerebrovascular acci dent, obesity, hypertension, and hypothyroidism. The patient also has had a history of congestive h eart failure. ALLERGIES: HE HAS NO KNOWN DRUG ALLERGIES. MEDICATIONS: Include: 1. Tylenol. 2. DuoNeb. 3. Aspirin. 4. Lipitor. 5. Plavix 6. Famotidine. 7. Lasix. 8. Levothyroxine. 9. Losartan. 10. Metoprolol. 11. Flomax. 12. Metformin. 13. Rocephin. 14. Levaquin. PHYSICAL EXAMINATION: GENERAL: Reveals an elderly male who weighs about 100 kg. He is 68 inches tall. VITAL SIGNS: Show a temperature is 97.8, pulse is 66, respiration 20, blood pressure 107/56. PSYCHIATRIC: The patient is restless, and he is trying to even hit the nurses and took off his francia tor. Apparently, after the nurses tried to catheterize him unsuccessfully, he did urinate once and the sheets in the bed are very well soaked and the urine was blood-tinged. NECK: Supple. HEAD: Normal. ABDOMEN: Obese. There is no abdominal mass palpable. EXTERNAL GENITALIA: Normal. I did a bladder scan on him and the bladder only has, on the bladder s can, about 150 mL. Therefore, the patient is not in any urinary retention. EXTREMITIES: Normal. LABORATORY DATA: Urine culture was no growth after 48 hours. The CBC shows a white count of 8.4, h emoglobin 11.4, hematocrit 34.5, BUN is 14, creatinine 1.22. Sodium 143, potassium 4.1, chloride 99 , CO2 of 31. IMPRESSION: Traumatic hematuria. The patient is not in urinary retention, but he does have a high postvoid residual. He does have a history of benign prostatic hypertrophy and is on. Flomax. RECOMMENDATION: Since the patient is very restless and he is trying, in fact, to take out anything that is connected to him and he may well pull the Crabtree catheter out as well. Actually at the prese nt time with him voiding and the bladder scan showing about 150 mL, therefore, there is no urinary r etention. Therefore, I would recommend not to insert a Crabtree catheter, so we do not have the risk o f him pulling it out and bleeding, especially that he is on anticoagulation with Plavix. I do thank you for allowing me to help in his care. Dictated By: HILARIO MICHEL MD BB/NTS Conf#: [id number] DID#: [id number] CC: EMANUEL ANTHONY MD; SIGIFREDO GIORDANO MD;*EndCC*
[2016-06-07] MEDS: TAMSULOSIN (SR) 0.4 MG CAP PO SCH (20:46)
[2016-06-07] MEDS: ATORVASTATIN 40 MG TAB PO SCH (20:46)
[2016-06-08] VITALS (13 sets, daily range): BP systolic 143–197; BP diastolic 66–82; PULSE 59–72; RESP 16–22
[2016-06-08] MEDS: hydrALAzine 20 MG INJ IV PRN ×2 (00:17→05:20)
[2016-06-08] MEDS: ACCUCHECK AT 2AM (Patients on SS coverage) XX SCH (02:00)
[2016-06-08] MEDS: VANCOMYCIN 1.5 GM in SOD CHLORIDE 0.9% 250 ML IVPB SCH (05:19)
[2016-06-08] MEDS: LEVOTHYROXINE 100 MCG TAB PO SCH (05:20)
[2016-06-08] MEDS: INSULIN ASPART [NOVOLOG] 3 ML PEN SC SCH ×4 (08:00→21:00)
[2016-06-08] MEDS: FERROUS FUMARATE (SR) TAB PO SCH ×2 (08:54→21:01)
[2016-06-08] MEDS: CLOPIDOGREL 75 MG TAB PO SCH (08:54)
[2016-06-08] MEDS: DOCUSATE SODIUM 100 MG CAP PO SCH ×2 (08:54→21:00)
[2016-06-08] MEDS: CEFEPIME 1GM/50 ML (PMX) 50 ML IVPB SCH ×2 (08:54→20:59)
[2016-06-08] MEDS: METOPROLOL (XL) 25 MG TAB PO SCH ×2 (08:55→21:00)
[2016-06-08] MEDS: LOSARTAN 50 MG TAB PO SCH ×2 (08:55→21:00)
[2016-06-08] MEDS: FAMOTIDINE 20 MG TAB PO SCH ×2 (08:55→21:00)
[2016-06-08] MEDS: ASPIRIN (EC) 81 MG TAB PO SCH (08:55)
[2016-06-08] MEDS: FUROSEMIDE 40 MG TAB PO SCH (08:55)
[2016-06-08] MEDS: ENOXAPARIN 40 MG/0.4 ML SYG SC SCH (08:56)
--- NOTE | 2016-06-08 16:49 | PN ---
Date/Time of Note Date/Time of Note DATE: 06/08/16 TIME: 16:46 Assessment/Plan VTE Prophylaxis VTE Prophylaxis Intervention: SCD's Lines/Catheters IV [facility]ter [facility]from [facility] Saline Lock Urinary Cath still in place: No Assessment/Plan Chief Complaint/Hosp Course Assessment and plan 1. Pneumonia. Continue broad-spectrum IV antibiotics, patient is afebrile 2. Systemic inflammatory response syndrome secondary to #1, resolved. 3. Dyslipidemia. Continue statin. 4. History of coronary artery disease. Continue Plavix, aspirin and statin. 5. Diabetes mellitus on metformin. 6. Hypertension, well controlled on losartan and metoprolol. 7. Hypothyroidism. Continue Synthroid. 8. Benign prostatic hypertrophy. Continue Flomax. DC restraint DVT prophylaxis on SCD Discharge to fdc facility when bed is available and patient is off restraints Problems: Subjective 24 Hr Interval Summary Free Text/Dictation Patient has been placed in restraints secondary to agitation status post straight cath secondary to urinary retention At this time patient is calm and able to follow simple commands Tolerating oral intake Exam/Review of Systems Vital Signs Vitals Vital Signs Date Time Temp Pulse Resp B/P Pulse Ox O2 Delivery O2 Flow Rate FiO2 06/08/16 16:11 64 06/08/16 15:11 98.4 20 143/67 95 06/08/16 08:00 6.0 06/07/16 20:00 Nasal Cannula 06/06/16 05:46 45 Intake and Output 06/07/16 06/07/16 06/08/16 15:00 23:00 07:00 Intake Total 300 ml 720 ml 250 ml Balance 300 ml 720 ml 250 ml Exam General: The patient is well-developed, Not in acute distress. HEENT: Atraumatic, normocephalic. The pupils are equal and round . Neck: Supple with full range of motion. Chest: Normal expansion of the thorax during inspiration Lungs: Clear to auscultation bilaterally Heart: Normal S1-S2, Regular rhythm and rate. Abdomen: Soft , nontender, nondistended , bowel sounds are present. Extremities: Normal to inspection, nonpitting edema no cyanosis Neurologic: Patient is awake alert Results Result Diagram: 06/05/16200406/07/16 0537 Results 24 hrs Laboratory Tests Test 06/07/16 20:31 06/08/16 08:21 06/08/16 12:24 Bedside Glucose 155 142 162 Medications Medications Current Medications Cefepime HCl (Maxipime 1gm/50 ml (Pmx)) 50 ml @ 100 mls/hr Q12 IVPB Last administered on 06/08/16 08:54; Admin Dose 100 MLS/HR; Start 06/06/16 at 09:00 Acetaminophen (Tylenol Tab) 650 mg Q6H PRN PO PAIN AND OR ELEVATED TEMP Last administered on 06/07/16 12:37; Admin Dose 650 MG; Start 06/05/16 at 22:30 Docusate Sodium (Colace) 100 mg BID PO Last administered on 06/08/16 08:54; Admin Dose 100 MG; Start 06/06/16 at 09:00 Aspirin (Halfprin) 81 mg DAILY PO Last administered on 06/08/16 08:55; Admin Dose 81 MG; Start 06/06/16 at 09:00 Enoxaparin Sodium (Lovenox) 40 mg DAILY SC Last administered on 06/08/16 08:56 ; Admin Dose 40 MG; Start 06/06/16 at 09:00 Famotidine (Pepcid) 20 mg BID PO Last administered on 06/08/16 08:55; Admin Dose 20 MG; Start 06/06/16 at 09:00 Ondansetron HCl (Zofran Inj) 4 mg Q6H PRN IV NAUSEA AND/OR VOMITING; Start 06/05 at 23:00 Diagnostic Test (Pha) (Accucheck) 1 ea 02 XX ; Start 06/06/16 at 02:00 Miscellaneous Information 1 ea NOTE XX ; Start 06/05/16 at 23:30 Glucose (Glutose) 15 gm Q15M PRN PO DECREASED GLUCOSE; Start 06/05/16 at 23:30 Glucose (Glutose) 22.5 gm Q15M PRN PO DECREASED GLUCOSE; Start 06/05/16 at 23:30 Dextrose (D50w Syringe) 25 ml Q15M PRN IV DECREASED GLUCOSE; Start 06/05/16 at 23:30 Dextrose (D50w Syringe) 50 ml Q15M PRN IV DECREASED GLUCOSE; Start 06/05/16 at 23:30 Glucagon (Glucagen) 1 mg Q15M PRN IM DECREASED GLUCOSE; Start 06/05/16 at 23:30 Glucose 15 gm 15 gm Q15M PRN BUCCAL DECREASED GLUCOSE; Start 06/05/16 at 23:30 Vancomycin HCl/ Sodium Chloride (Vancocin/NS) 250 ml @ 83.333 mls/ hr Q24H IVPB Last administered on 06/08/16 05:19; Admin Dose 83.333 MLS/HR; Start at 06:00 Losartan Potassium (Cozaar) 50 mg BID PO Last administered on 06/08/16 08:55; Admin Dose 50 MG; Start 06/06/16 at 21:00 Tamsulosin HCl (Flomax) 0.4 mg HS PO Last administered on 06/07/16 20:46; Admin Dose 0.4 MG; Start 06/06/16 at 21:00 Atorvastatin Calcium (Lipitor) 40 mg HS PO Last administered on 06/07/16 20:46 ; Admin Dose 40 MG; Start 06/06/16 at 21:00 Clopidogrel Bisulfate (plaVIX) 75 mg DAILY PO Last administered on 06/08/16 08: 54; Admin Dose 75 MG; Start 06/07/16 at 09:00 Docusate Sodium/ Ferrous Fumarate (Bridget-Sequels) 1 tab BID PO Last administered on 06/08/16 08:54; Admin Dose 1 TAB; Start 06/06/16 at 21:00 Levothyroxine Sodium (Synthroid) 200 mcg DAILY@06 PO Last administered on 05:20; Admin Dose 200 MCG; Start 06/07/16 at 06:00 Furosemide (Lasix) 40 mg DAILY PO Last administered on 06/08/16 08:55; Admin Dose 40 MG; Start 06/07/16 at 09:00 Metoprolol Succinate (Toprol Xl) 25 mg BID PO Last administered on 06/08/16 08: 55; Admin Dose 25 MG; Start 06/06/16 at 21:00 Hydralazine HCl (Apresoline) 10 mg Q4H PRN IV ELEVATED SYSTOLIC BP Last administered on 06/08/16 05:20; Admin Dose 10 MG; Start 06/08/16 at 00:00 SIGIFREDO GIORDANO MD Jun 08, 2016 16:49
[2016-06-08] MEDS: ATORVASTATIN 40 MG TAB PO SCH (21:00)
[2016-06-08] MEDS: TAMSULOSIN (SR) 0.4 MG CAP PO SCH (21:00)
[2016-06-09] VITALS (20 sets, daily range): BP systolic 101–198; BP diastolic 61–88; PULSE 54–75; RESP 17–20
[2016-06-09] MEDS: hydrALAzine 20 MG INJ IV PRN ×2 (00:46→21:57)
[2016-06-09] MEDS: ACCUCHECK AT 2AM (Patients on SS coverage) XX SCH (01:02)
[2016-06-09] MEDS ORDERED: hydrALAzine 20 MG INJ IV ONE (03:00)
[2016-06-09] MEDS ORDERED: LABETALOL HCL 20MG INJ IV PRN (04:17)
[2016-06-09] MEDS: LEVOTHYROXINE 100 MCG TAB PO SCH (06:00)
[2016-06-09 06:23] LABS: CREATININE 1.19 mg/dl (0.61-1.24)
[2016-06-09] MEDS: VANCOMYCIN 1.5 GM in SOD CHLORIDE 0.9% 250 ML IVPB SCH (06:54)
[2016-06-09] MEDS: FAMOTIDINE 20 MG TAB PO SCH ×2 (09:14→21:53)
[2016-06-09] MEDS: FERROUS FUMARATE (SR) TAB PO SCH ×2 (09:14→21:53)
[2016-06-09] MEDS: CLOPIDOGREL 75 MG TAB PO SCH (09:14)
[2016-06-09] MEDS: ASPIRIN (EC) 81 MG TAB PO SCH (09:14)
[2016-06-09] MEDS: FUROSEMIDE 40 MG TAB PO SCH (09:15)
[2016-06-09] MEDS: METOPROLOL (XL) 25 MG TAB PO SCH ×2 (09:15→21:54)
[2016-06-09] MEDS: DOCUSATE SODIUM 100 MG CAP PO SCH ×2 (09:15→21:53)
[2016-06-09] MEDS: LOSARTAN 50 MG TAB PO SCH ×2 (09:16→21:54)
[2016-06-09] MEDS: CEFEPIME 1GM/50 ML (PMX) 50 ML IVPB SCH ×2 (09:18→21:00)
[2016-06-09] MEDS: ENOXAPARIN 40 MG/0.4 ML SYG SC SCH (09:19)
[2016-06-09] MEDS: INSULIN ASPART [NOVOLOG] 3 ML PEN SC SCH ×4 (09:20→21:00)
--- NOTE | 2016-06-09 16:51 | PN ---
Date/Time of Note Date/Time of Note DATE: 06/09/16 TIME: 16:48 Assessment/Plan VTE Prophylaxis VTE Prophylaxis Intervention: SCD's Lines/Catheters IV [facility]ter Type (from [facility]): [facility] Urinary Cath still in place: No Assessment/Plan Chief Complaint/Hosp Course Assessment and plan 1. Pneumonia. Continue broad-spectrum IV antibiotics, patient is afebrile 2. Systemic inflammatory response syndrome secondary to #1, resolved. 3. Dyslipidemia. Continue statin. 4. History of coronary artery disease. Continue Plavix, aspirin and statin. 5. Diabetes mellitus on metformin. 6. Hypertension, well controlled on losartan and metoprolol. 7. Hypothyroidism. Continue Synthroid. 8. Benign prostatic hypertrophy. Continue Flomax. 9. Encephalopathy. Likely sundowning versus hospital-acquired delirium. Family support is very crucial, continue physical therapy DC restraint DVT prophylaxis on SCD Discharge to correction facility or home with home health when patient is off restraints Problems: Subjective 24 Hr Interval Summary Free Text/Dictation Patient continues to be agitated and trying to get out of bed Tolerating oral intake No family at the bedside Exam/Review of Systems Vital Signs Vitals Vital Signs Date Time Temp Pulse Resp B/P Pulse Ox O2 Delivery O2 Flow Rate FiO2 06/09/16 16:44 56 06/09/16 16:03 98.5 20 152/74 95 06/09/16 08:00 3.0 06/09/16 06:24 Nasal Cannula 06/06/16 05:46 45 Intake and Output 06/08/16 06/08/16 06/09/16 15:00 23:00 07:00 Intake Total 730 ml 150 ml Balance 730 ml 150 ml Exam General: The patient is well-developed, Not in acute distress. Morbidly obese HEENT: Atraumatic, normocephalic. The pupils are equal and round . Neck: Supple with full range of motion. Chest: Normal expansion of the thorax during inspiration Lungs: Clear to auscultation bilaterally Heart: Normal S1-S2, Regular rhythm and rate. Abdomen: Soft , nontender, nondistended , bowel sounds are present. Extremities: Normal to inspection, no edema no cyanosis Neurologic: Normal mental status,The patient is awake, alert Results Result Diagram: 06/05/16200406/09/16 0525 Results 24 hrs Laboratory Tests Test 06/08/16 17:05 06/08/16 21:13 06/09/16 05:25 06/09/16 08:04 Bedside Glucose 171 171 201 Blood Urea Nitrogen 18 Creatinine 1.19 Vancomycin Level Trough 14.0 Test 06/09/16 12:03 Bedside Glucose 204 Medications Medications Current Medications Cefepime HCl (Maxipime 1gm/50 ml (Pmx)) 50 ml @ 100 mls/hr Q12 IVPB Last administered on 06/09/16 09:18; Admin Dose 100 MLS/HR; Start 06/06/16 at 09:00 Acetaminophen (Tylenol Tab) 650 mg Q6H PRN PO PAIN AND OR ELEVATED TEMP Last administered on 06/07/16 12:37; Admin Dose 650 MG; Start 06/05/16 at 22:30 Docusate Sodium (Colace) 100 mg BID PO Last administered on 06/09/16 09:15; Admin Dose 100 MG; Start 06/06/16 at 09:00 Aspirin (Halfprin) 81 mg DAILY PO Last administered on 06/09/16 09:14; Admin Dose 81 MG; Start 06/06/16 at 09:00 Enoxaparin Sodium (Lovenox) 40 mg DAILY SC Last administered on 06/09/16 09:19 ; Admin Dose 40 MG; Start 06/06/16 at 09:00 Famotidine (Pepcid) 20 mg BID PO Last administered on 06/09/16 09:14; Admin Dose 20 MG; Start 06/06/16 at 09:00 Ondansetron HCl (Zofran Inj) 4 mg Q6H PRN IV NAUSEA AND/OR VOMITING; Start 06/05 at 23:00 Diagnostic Test (Pha) (Accucheck) 1 ea 02 XX ; Start 06/06/16 at 02:00 Miscellaneous Information 1 ea NOTE XX ; Start 06/05/16 at 23:30 Glucose (Glutose) 15 gm Q15M PRN PO DECREASED GLUCOSE; Start 06/05/16 at 23:30 Glucose (Glutose) 22.5 gm Q15M PRN PO DECREASED GLUCOSE; Start 06/05/16 at 23:30 Dextrose (D50w Syringe) 25 ml Q15M PRN IV DECREASED GLUCOSE; Start 06/05/16 at 23:30 Dextrose (D50w Syringe) 50 ml Q15M PRN IV DECREASED GLUCOSE; Start 06/05/16 at 23:30 Glucagon (Glucagen) 1 mg Q15M PRN IM DECREASED GLUCOSE; Start 06/05/16 at 23:30 Glucose 15 gm 15 gm Q15M PRN BUCCAL DECREASED GLUCOSE; Start 06/05/16 at 23:30 Vancomycin HCl/ Sodium Chloride (Vancocin/NS) 250 ml @ 83.333 mls/ hr Q24H IVPB Last administered on 06/09/16 06:54; Admin Dose 83.333 MLS/HR; Start at 06:00 Losartan Potassium (Cozaar) 50 mg BID PO Last administered on 06/09/16 09:16; Admin Dose 50 MG; Start 06/06/16 at 21:00 Tamsulosin HCl (Flomax) 0.4 mg HS PO Last administered on 06/07/16 20:46; Admin Dose 0.4 MG; Start 06/06/16 at 21:00 Atorvastatin Calcium (Lipitor) 40 mg HS PO Last administered on 06/07/16 20:46 ; Admin Dose 40 MG; Start 06/06/16 at 21:00 Clopidogrel Bisulfate (plaVIX) 75 mg DAILY PO Last administered on 06/09/16 09: 14; Admin Dose 75 MG; Start 06/07/16 at 09:00 Docusate Sodium/ Ferrous Fumarate (Bridget-Sequels) 1 tab BID PO Last administered on 06/09/16 09:14; Admin Dose 1 TAB; Start 06/06/16 at 21:00 Levothyroxine Sodium (Synthroid) 200 mcg DAILY@06 PO Last administered on 05:20; Admin Dose 200 MCG; Start 06/07/16 at 06:00 Furosemide (Lasix) 40 mg DAILY PO Last administered on 06/09/16 09:15; Admin Dose 40 MG; Start 06/07/16 at 09:00 Metoprolol Succinate (Toprol Xl) 25 mg BID PO Last administered on 06/09/16 09: 15; Admin Dose 25 MG; Start 06/06/16 at 21:00 Hydralazine HCl (Apresoline) 10 mg Q4H PRN IV ELEVATED SYSTOLIC BP Last administered on 06/09/16 00:46; Admin Dose 10 MG; Start 1/4/17 at 00:00 Labetalol HCl (Labetalol) 20 mg Q2H PRN IV ELEVATED SYSTOLIC BP Last administered on 06/09/16 04:36; Admin Dose 20 MG; Start 06/09/16 at 04:17 SIGIFREDO GIORDANO MD Jun 09, 2016 16:51
[2016-06-09] MEDS: TAMSULOSIN (SR) 0.4 MG CAP PO SCH (21:53)
[2016-06-09] MEDS: ATORVASTATIN 40 MG TAB PO SCH (21:53)
[2016-06-10] VITALS (17 sets, daily range): BP systolic 122–175; BP diastolic 65–90; PULSE 48–62; RESP 18–20
[2016-06-10] MEDS: ACCUCHECK AT 2AM (Patients on SS coverage) XX SCH (02:00)
[2016-06-10] MEDS ORDERED: LORAZEPAM 2 MG INJ IM ONE (02:30)
[2016-06-10] MEDS: LEVOTHYROXINE 100 MCG TAB PO SCH (06:00)
[2016-06-10] MEDS: VANCOMYCIN 1.5 GM in SOD CHLORIDE 0.9% 250 ML IVPB SCH (06:00)
[2016-06-10] MEDS: INSULIN ASPART [NOVOLOG] 3 ML PEN SC SCH ×4 (07:51→21:00)
[2016-06-10 08:09] LABS: BASOPHILS % 0.6 % (0.0-2.0); EOSINOPHILS # 0.3 10^3/ul (0.0-0.5); HEMATOCRIT 34.4 % (42.0-52.0); HEMOGLOBIN 11.3 g/dl (14.0-18.0); LYMPHOCYTES # 2.1 10^3/ul (0.8-2.9); LYMPHOCYTES % 45.8 % (15.0-51.0); MEAN CORPUSCULAR HEMOGLOBIN 28.3 pg (29.0-33.0); MEAN CORPUSCULAR HGB CONC 32.8 g/dl (32.0-37.0); MEAN CORPUSCULAR VOLUME 86.2 fl (82.0-101.0); MEAN PLATELET VOLUME 8.7 fl (7.4-10.4); MONOCYTE # 0.4 10^3/ul (0.3-0.9); MONOCYTES % 8.5 % (0.0-11.0); NEUTROPHIL # 1.8 10^3/ul (1.6-7.5); NEUTROPHILS % 39.1 % (39.0-77.0); PLATELET COUNT 238 10^3/UL (140-440); RED CELL DISTRIBUTION WIDTH 16.1 % (11.5-14.5); UNCORRECTED WBC 4.6 10^3/ul (4.8-10.8); WHITE BLOOD COUNT 4.6 10^3/ul (4.8-10.8)
[2016-06-10 08:11] LABS: CONDITION 1; LH ANALYZER COMMENTS 1
[2016-06-10] MEDS: CEFEPIME 1GM/50 ML (PMX) 50 ML IVPB SCH (08:19)
[2016-06-10] MEDS: FERROUS FUMARATE (SR) TAB PO SCH ×3 (08:19→21:12)
[2016-06-10] MEDS: CLOPIDOGREL 75 MG TAB PO SCH (08:19)
[2016-06-10] MEDS: METOPROLOL (XL) 25 MG TAB PO SCH ×3 (08:20→21:13)
[2016-06-10] MEDS: LOSARTAN 50 MG TAB PO SCH ×3 (08:20→21:12)
[2016-06-10] MEDS: DOCUSATE SODIUM 100 MG CAP PO SCH ×3 (08:21→21:12)
[2016-06-10] MEDS: ASPIRIN (EC) 81 MG TAB PO SCH (08:21)
[2016-06-10] MEDS: FUROSEMIDE 40 MG TAB PO SCH (08:21)
[2016-06-10] MEDS: FAMOTIDINE 20 MG TAB PO SCH ×3 (08:21→21:12)
[2016-06-10] MEDS: ENOXAPARIN 40 MG/0.4 ML SYG SC SCH (08:23)
[2016-06-10 08:28] LABS: POTASSIUM 3.5 mmol/L (3.5-5.1)
[2016-06-10 08:30] LABS: CREATININE 1.02 mg/dl (0.61-1.24)
[2016-06-10 08:31] LABS: CALCIUM 8.7 mg/dl (8.4-10.2); MAGNESIUM 1.7 mg/dl (1.7-2.5)
--- NOTE | 2016-06-10 15:54 | DS ---
Date/Time of Note Date/Time of Note DATE: 06/10/16 TIME: 15:51 Discharge Summary Admission/Discharge Info Admit Date/Time Jun 05, 2016 at 22:06 Discharge Date/Time 06/10/16 Final Diagnosis 1. Pneumonia. The patient will discharge on Levaquin and Keflex. 2. Systemic inflammatory response syndrome secondary to #1, resolved. 3. Dyslipidemia. Continue statin. 4. History of coronary artery disease. Continue Plavix, aspirin and statin. 5. Diabetes mellitus on metformin. 6. Hypertension, well controlled on losartan and metoprolol. 7. Hypothyroidism. Continue Synthroid. 8. Benign prostatic hypertrophy. Continue Flomax. Patient Condition: Good Hx of Present Illness PRESENTING COMPLAINT: confusion HISTORY OF PRESENTING COMPLAINT: 80 yo M who was brought in by his family because of confusion and was found to be hypoxic in the ER. He usually resides in a assisted. No other hx is obtainable d/t patient's mental status. He was saturating 88% on RA and required O2 via NRB mask at 15L to maintain his sats. Hospital Course Is addendum from a discharge summary which was done on 06/08/2016 This is a 80-year-old gentleman with past medical history of congestive heart failure, diabetes mellitus, anemia and previous CVA, obesity, hypertension, coronary artery disease status post PCI, diabetes mellitus, hypothyroidism who resides at detention facility. He was brought into the [facility] having worsening altered mental status and confusion and was found to be hypoxic in the ER. His oxygen saturation was found to be 85% on room air. He was placed on oxygen, breathing treatment. His chest x-ray demonstrated moderate cardiomegaly with pulmonary venous congestion, mild basilar atelectasis, small pleural effusion and aortic atherosclerosis. Patient was placed on cefepime and vancomycin. In the course of emergency room, his lactic acid was found to be elevated at 2.4. He was placed insulin sliding scale for his history of hypertension. The patient was continued on his home medication, losartan and metoprolol. His blood pressure is better controlled at this time. Regarding his diabetes mellitus, the patient was placed on insulin sliding scale, low carb and low salt diet. Regarding his hypothyroidism, the patient was continued on levothyroxine. The patient has a history of coronary artery disease and was continued on aspirin, statin, beta linda and Plavix. Regarding his history of anemia, he was continued on ferrous sulfate. At this time, his blood pressure is found to be mildly on the high side; therefore, his metoprolol from 25 mg will be increased. Metoprolol-XL will be increased from 25 mg to 50 mg. His Losartan will be continued the same dose of 50 mg b.i.d. He was continued on IV antibiotics. His WBC has normalized. His lactic acid was normal. He is afebrile. At this time, the patient is medically stable to be transferred back to detention facility for IV Rocephin x7 days and Levaquin. The family decided to transfer the patient to detention facility although unfortunately patient had urinary retention and urology was consulted. Patient was able to void without any difficulty although he was found to be altered and required restraint. This morning patient has been off restraints he is awake alert and not aggressive. This time patient is medically stable to be transferred to detention facility for continuation of medical management. Home Meds Active Scripts Atorvastatin* (Atorvastatin*) 40 Mg Tablet, 40 MG PO HS for 1 Day, TAB Prov:SIGIFREDO GIORDANO MD 06/07/16 Aspirin* (Aspirin* EC) 81 Mg Tablet., 81 MG PO DAILY, #1 Prov:SIGIFREDO GIORDANO MD 06/07/16 Pending Labs Laboratory Tests Test 06/09/16 17:51 06/09/16 21:52 06/10/16 07:25 06/10/16 07:36 Bedside Glucose 141mg/dL (70-220) 150mg/dL (70-220) 139mg/dL (70-220) Anion Gap 15 (8-16) Basophils # 0.010^3/ul (0.0-0.1) Basophils % 0.6% (0.0-2.0) Blood Morphology Comment Blood Urea Nitrogen 15mg/dl (7-20) Calcium Level 8.7mg/dl (8.4-10.2) Carbon Dioxide Level 31mmol/L (21-31) Chloride Level 101mmol/L (97-110) Creatinine 1.02mg/dl (0.61-1.24) Eosinophils # 0.310^3/ul (0.0-0.5) Eosinophils % 6.0% (0.0-7.0) Glucose Level 143mg/dl (70-220) Hematocrit 34.4% (42.0-52.0) Hemoglobin 11.3g/dl (14.0-18.0) Lymphocytes # 2.110^3/ul (0.8-2.9) Lymphocytes % 45.8% (15.0-51.0) Magnesium Level 1.7mg/dl (1.7-2.5) Mean Corpuscular Hemoglobin 28.3pg (29.0-33.0) Mean Corpuscular Hemoglobin Concent 32.8g/dl (32.0-37.0) Mean Corpuscular Volume 86.2fl (82.0-101.0) Mean Platelet Volume 8.7fl (7.4-10.4) Monocytes # 0.410^3/ul (0.3-0.9) Monocytes % 8.5% (0.0-11.0) Neutrophils # 1.810^3/ul (1.6-7.5) Neutrophils % 39.1% (39.0-77.0) Nucleated Red Blood Cells # 0.010^3/ul (0.0-0.0) Nucleated Red Blood Cells % 0.0/100WBC (0.0-0.0) Platelet Count 66748^3/UL (140-440) Potassium Level 3.5mmol/L (3.5-5.1) Red Blood Count 4.0010^6/ul (4.70-6.10) Red Cell Distribution Width 16.1% (11.5-14.5) Sodium Level 143mmol/L (135-144) White Blood Count 4.610^3/ul (4.8-10.8) Test 06/10/16 11:43 Bedside Glucose 136mg/dL (70-220) SIGIFREDO GIORDANO MD Jun 10, 2016 15:53
[2016-06-10] MEDS: hydrALAzine 20 MG INJ IV PRN (17:15)
[2016-06-10] MEDS: ATORVASTATIN 40 MG TAB PO SCH ×2 (21:00→21:12)
[2016-06-10] MEDS: TAMSULOSIN (SR) 0.4 MG CAP PO SCH ×2 (21:00→21:24)
[2016-06-10] MEDS: CEFTRIAXONE 1 GM/NS 50 ML IVPB SCH (21:12)
[2016-06-11] VITALS (7 sets, daily range): BP systolic 137–177; BP diastolic 61–77; PULSE 76; RESP 18–20
[2016-06-11] MEDS: hydrALAzine 20 MG INJ IV PRN ×2 (01:30→19:29)
[2016-06-11] MEDS: ACCUCHECK AT 2AM (Patients on SS coverage) XX SCH (02:00)
[2016-06-11] MEDS: LEVOTHYROXINE 100 MCG TAB PO SCH (06:00)
[2016-06-11] MEDS ORDERED: LOSA50TA2 PO (07:52)
[2016-06-11] MEDS ORDERED: CEPH-443 PO (07:52)
[2016-06-11] MEDS ORDERED: FAMO20TA18 PO (07:52)
[2016-06-11] MEDS ORDERED: CLOP75TA28 PO (07:52)
[2016-06-11] MEDS ORDERED: FURO40TA4 PO (07:52)
[2016-06-11] MEDS ORDERED: METO25TA7 PO (07:52)
[2016-06-11] MEDS ORDERED: LEVO500T72 PO (07:52)
[2016-06-11] MEDS ORDERED: DOCU-144 PO (07:52)
[2016-06-11] MEDS ORDERED: TAMS-14 PO (07:52)
[2016-06-11] MEDS ORDERED: FERR1TAB14 PO (07:52)
[2016-06-11] MEDS ORDERED: SYN1 PO (07:52)
[2016-06-11] MEDS ORDERED: METF500T4 PO (07:53)
[2016-06-11] MEDS ORDERED: IPRA4AER INHALATION (07:53)
[2016-06-11] MEDS ORDERED: LOSA50TA6 PO (08:12)
[2016-06-11] MEDS ORDERED: METO25TA4 PO (08:12)
[2016-06-11] MEDS: FAMOTIDINE 20 MG TAB PO SCH ×2 (08:41→21:00)
[2016-06-11] MEDS: CLOPIDOGREL 75 MG TAB PO SCH (08:42)
[2016-06-11] MEDS: ASPIRIN (EC) 81 MG TAB PO SCH (08:42)
[2016-06-11] MEDS: METOPROLOL (XL) 25 MG TAB PO SCH ×2 (08:42→21:00)
[2016-06-11] MEDS: FERROUS FUMARATE (SR) TAB PO SCH ×2 (08:42→21:00)
[2016-06-11] MEDS: FUROSEMIDE 40 MG TAB PO SCH (08:42)
[2016-06-11] MEDS: DOCUSATE SODIUM 100 MG CAP PO SCH ×2 (08:42→21:00)
[2016-06-11] MEDS: LOSARTAN 50 MG TAB PO SCH (08:42)
[2016-06-11] MEDS: INSULIN ASPART [NOVOLOG] 3 ML PEN SC SCH ×4 (08:43→21:00)
[2016-06-11] MEDS: ENOXAPARIN 40 MG/0.4 ML SYG SC SCH (08:43)
[2016-06-11] MEDS: CEFTRIAXONE 1 GM/NS 50 ML IVPB SCH (20:53)
[2016-06-11] MEDS: TAMSULOSIN (SR) 0.4 MG CAP PO SCH (21:00)
[2016-06-11] MEDS: ATORVASTATIN 40 MG TAB PO SCH (21:00)
--- NOTE | 2016-06-12 01:04 | DS ---
DATE OF ADMISSION: 06/05/2016 DATE OF DISCHARGE: 06/11/2016 ADDENDUM This is the addendum for a discharge summary which was done on 06/09/2016. FLATWORK FINISHER: Harry Pavon MD. PROCEDURES: A 2-D echocardiogram which demonstrated normal ejection fraction of 65%, stage I diasto lic dysfunction, normal right ventricular size, normal left ventricular systolic function, normal le ft ventricular cavity size, mild concentric left ventricular hypertrophy, ejection fraction visually 65%. No significant valvular stenosis or regurgitation seen. DISCHARGE DIAGNOSES 1. Pneumonia. The patient will be discharged on Levaquin and Keflex. 2. Systemic inflammatory response syndrome secondary to #1, resolved. 3. Dyslipidemia. Continue statin. 4. History of coronary artery disease. Continue Plavix, aspirin, statin, beta linda. 5. Essential hypertension on losartan and metoprolol. 6. Diabetes mellitus on metformin. 7. Hypothyroidism. Continue Synthroid. 8. Benign prostatic hypertrophy. Continue Flomax. DIET: Low salt cardiac diet. ALLERGIES: NO KNOWN DRUG ALLERGIES. MEDICATIONS: 1. Plavix. 2. Colace. 3. Famotidine. 4. Lasix. 5. Ferrous fumarate. 6. Levothyroxine. 7. Losartan 50 mg p.o. b.i.d. 8. Metoprolol 25 mg p.o. b.i.d. 9. Flomax. 10. Keflex 500 mg x5 days. 11. Levaquin 500 mg x5 days. 12. Metformin 500 mg p.o. b.i.d. 13. Combivent. ALLERGIES: NO KNOWN DRUG ALLERGIES. DISPOSITION: Home with home health. HOSPITAL COURSE: This is a 80-year-old gentleman with past medical history of congestive heart fail ure, diabetes mellitus, anemia, previous CVA, obesity, hypertension, coronary artery disease status post PCI, hypothyroidism who used to reside at home and then was hospitalized and then he resides at a fpc facility, who was brought into the [facility] having altered me ntal status, confusion, and was found to be hypoxic in the ER. His oxygen saturation was found to b e 85% on room air. He was placed on oxygen and breathing treatment. Chest x-ray demonstrated moder ate cardiomegaly with pulmonary venous congestion, mild basilar atelectasis, small pleural effusion, aortic atherosclerosis. Patient was placed on cefepime and vancomycin. In the emergency room, his lactic acid was found to be elevated at 2.4. He was started on insulin sliding scale secondary to history of hyperglycemia/diabetes mellitus. He was continued on his home medication for his blood p ressure, which was losartan and metoprolol. His blood pressure continued to be better controlled. Regarding his hypothyroidism, he was continued on levothyroxine. Regarding his coronary artery dise ase, he was continued on aspirin, statin, beta linda, and Plavix. He has a history of anemia and was continued on ferrous fumarate. His WBC is normalized. Lactic acid is normal level and at this time he has been afebrile. Patient was set to be transferred to fpc facility, although as my evaluation, the patient is having hospital acquired delirium and sundowning, I strongly believ e that the patient would benefit to be discharged home with home health and in the presence of his f amily member and his family support, his delirium will be significant improved and his mental status will be also improved. His vitals this morning: Temperature 98.5, pulse 69, respiration 20, blood pressure 140/77, oxygen 90% to 95%. He has been set up for home oxygen. I have written the order for him to be discharged home and home health has been set up by manager of case management. According to the jessica gamboa, the patient also already had home health in the past, so we just can continue the same home hea lth. At this time, the patient is in a good condition to be discharged home with home health for ph ysical therapy and continuation of medical management. Dictated By: SIGIFREDO KAUR/ERNESTO Conf#: [id number] DID#: [id number]
[2016-06-12] MEDS: ACCUCHECK AT 2AM (Patients on SS coverage) XX SCH (02:00)
[2016-06-12 05:44] LABS: BASOPHILS % 0.6 % (0.0-2.0); EOSINOPHILS # 0.3 10^3/ul (0.0-0.5); EOSINOPHILS % 5.5 % (0.0-7.0); HEMATOCRIT 36.9 % (42.0-52.0); HEMOGLOBIN 12.1 g/dl (14.0-18.0); LYMPHOCYTES # 2.5 10^3/ul (0.8-2.9); LYMPHOCYTES % 44.1 % (15.0-51.0); MEAN CORPUSCULAR HEMOGLOBIN 28.4 pg (29.0-33.0); MEAN CORPUSCULAR HGB CONC 32.9 g/dl (32.0-37.0); MEAN CORPUSCULAR VOLUME 86.1 fl (82.0-101.0); MEAN PLATELET VOLUME 8.6 fl (7.4-10.4); MONOCYTE # 0.4 10^3/ul (0.3-0.9); MONOCYTES % 6.9 % (0.0-11.0); NEUTROPHIL # 2.4 10^3/ul (1.6-7.5); NEUTROPHILS % 42.9 % (39.0-77.0); PLATELET COUNT 245 10^3/UL (140-440); RED BLOOD COUNT 4.28 10^6/ul (4.70-6.10); RED CELL DISTRIBUTION WIDTH 16.6 % (11.5-14.5); UNCORRECTED WBC 5.7 10^3/ul (4.8-10.8); WHITE BLOOD COUNT 5.7 10^3/ul (4.8-10.8)
[2016-06-12 06:03] LABS: CONDITION 1; LH ANALYZER COMMENTS 1
[2016-06-12 06:08] LABS: POTASSIUM 3.6 mmol/L (3.5-5.1)
[2016-06-12 06:11] LABS: CREATININE 1.16 mg/dl (0.61-1.24)
[2016-06-12 06:12] LABS: CALCIUM 8.9 mg/dl (8.4-10.2)
[2016-06-12] MEDS: LEVOTHYROXINE 100 MCG TAB PO SCH (06:34)
[2016-06-12 07:50] VITALS: BP 149/78; RESP 19
[2016-06-12] MEDS: INSULIN ASPART [NOVOLOG] 3 ML PEN SC SCH ×2 (08:00→12:06)
[2016-06-12] MEDS: DOCUSATE SODIUM 100 MG CAP PO SCH ×2 (08:48→08:56)
[2016-06-12] MEDS: ENOXAPARIN 40 MG/0.4 ML SYG SC SCH (08:48)
[2016-06-12] MEDS: METOPROLOL (XL) 25 MG TAB PO SCH (08:49)
[2016-06-12] MEDS: FERROUS FUMARATE (SR) TAB PO SCH ×2 (08:49→08:56)
[2016-06-12] MEDS: LOSARTAN 50 MG TAB PO SCH (08:49)
[2016-06-12] MEDS: CLOPIDOGREL 75 MG TAB PO SCH (08:50)
[2016-06-12] MEDS: ASPIRIN (EC) 81 MG TAB PO SCH (08:50)
[2016-06-12] MEDS: FUROSEMIDE 40 MG TAB PO SCH (08:50)
[2016-06-12] MEDS: FAMOTIDINE 20 MG TAB PO SCH (08:50)
--- NOTE | 2016-06-12 13:17 | PN ---
Date/Time of Note Date/Time of Note DATE: 06/12/16 TIME: 13:13 Assessment/Plan VTE Prophylaxis VTE Prophylaxis Intervention: SCD's Lines/Catheters IV [facility] (from [facility]): Saline Lock Urinary Cath still in place: No Assessment/Plan Chief Complaint/Hosp Course Assessment and plan 1. Pneumonia. Patient will be discharged home on Levaquin and Keflex, patient is afebrile 2. Systemic inflammatory response syndrome secondary to #1, resolved. 3. Dyslipidemia. Continue statin. 4. History of coronary artery disease. Continue Plavix, aspirin and statin. 5. Diabetes mellitus on metformin. 6. Hypertension, better controlled on losartan and metoprolol. 7. Hypothyroidism. Continue Synthroid. 8. Benign prostatic hypertrophy. Continue Flomax. 9. Encephalopathy. Likely sundowning versus hospital-acquired delirium. Family support is very crucial, continue physical therapy Patient is medically in good condition to be discharged home with home health and family support Follow up with primary care physician in 2-3 days Problems: Subjective 24 Hr Interval Summary Free Text/Dictation Patient is awake alert and able to follow simple commands His discharge was placed on hold secondary to uncontrolled hypertension His blood pressure is better controlled this morning Tolerating oral intake Exam/Review of Systems Vital Signs Vitals Vital Signs Date Time Temp Pulse Resp B/P Pulse Ox O2 Delivery O2 Flow Rate FiO2 06/12/16 08:00 Nasal Cannula 4.0 06/12/16 07:50 97.7 72 19 149/78 95 Intake and Output 06/11/16 06/11/16 06/12/16 15:00 23:00 07:00 Intake Total 700 ml 100 ml Balance 700 ml 100 ml Exam General: The patient is well-developed, Not in acute distress. HEENT: Atraumatic, normocephalic. The pupils are equal and round . Neck: Supple with full range of motion. Chest: Normal expansion of the thorax during inspiration Lungs: Clear to auscultation bilaterally Heart: Normal S1-S2, Regular rhythm and rate. Abdomen: Soft , nontender, nondistended , bowel sounds are present. Extremities: Normal to inspection, no edema no cyanosis Neurologic: mental status at baseline , The patient is awake, alert Results Result Diagram: 06/12/16 0418 06/12/16 0418 Results 24 hrs Laboratory Tests Test 06/11/16 16:58 06/11/16 20:55 06/12/16 04:18 06/12/16 07:37 Bedside Glucose 138 143 138 Anion Gap 19 H Basophils # 0.0 Basophils % 0.6 Blood Morphology Comment Blood Urea Nitrogen 17 Calcium Level 8.9 Carbon Dioxide Level 28 Chloride Level 102 Creatinine 1.16 Eosinophils # 0.3 Eosinophils % 5.5 Glucose Level 141 Hematocrit 36.9 L Hemoglobin 12.1 L Lymphocytes # 2.5 Lymphocytes % 44.1 Mean Corpuscular Hemoglobin 28.4 L Mean Corpuscular Hemoglobin Concent 32.9 Mean Corpuscular Volume 86.1 Mean Platelet Volume 8.6 Monocytes # 0.4 Monocytes % 6.9 Neutrophils # 2.4 Neutrophils % 42.9 Nucleated Red Blood Cells # 0.0 Nucleated Red Blood Cells % 0.0 Platelet Count 245 Potassium Level 3.6 Red Blood Count 4.28 L Red Cell Distribution Width 16.6 H Sodium Level 145 H White Blood Count 5.7 # Test 06/12/16 11:32 Bedside Glucose 239 H Medications Medications Current Medications Acetaminophen (Tylenol Tab) 650 mg Q6H PRN PO PAIN AND OR ELEVATED TEMP Last administered on 06/07/16 12:37; Admin Dose 650 MG; Start 06/05/16 at 22:30 Docusate Sodium (Colace) 100 mg BID PO Last administered on 06/11/16 08:42; Admin Dose 100 MG; Start 06/06/16 at 09:00 Aspirin (Halfprin) 81 mg DAILY PO Last administered on 06/12/16 08:50; Admin Dose 81 MG; Start 06/06/16 at 09:00 Enoxaparin Sodium (Lovenox) 40 mg DAILY SC Last administered on 06/12/16 08:48 ; Admin Dose 40 MG; Start 06/06/16 at 09:00 Famotidine (Pepcid) 20 mg BID PO Last administered on 06/12/16 08:50; Admin Dose 20 MG; Start 06/06/16 at 09:00 Ondansetron HCl (Zofran Inj) 4 mg Q6H PRN IV NAUSEA AND/OR VOMITING; Start 06/05 at 23:00 Diagnostic Test (Pha) (Accucheck) 1 ea 02 XX ; Start 06/06/16 at 02:00 Miscellaneous Information 1 ea NOTE XX ; Start 06/05/16 at 23:30 Glucose (Glutose) 15 gm Q15M PRN PO DECREASED GLUCOSE; Start 06/05/16 at 23:30 Glucose (Glutose) 22.5 gm Q15M PRN PO DECREASED GLUCOSE; Start 06/05/16 at 23:30 Dextrose (D50w Syringe) 25 ml Q15M PRN IV DECREASED GLUCOSE; Start 06/05/16 at 23:30 Dextrose (D50w Syringe) 50 ml Q15M PRN IV DECREASED GLUCOSE; Start 06/05/16 at 23:30 Glucagon (Glucagen) 1 mg Q15M PRN IM DECREASED GLUCOSE; Start 06/05/16 at 23:30 Glucose (Glutose) 15 gm Q15M PRN BUCCAL DECREASED GLUCOSE; Start 06/05/16 at 23: 30 Tamsulosin HCl (Flomax) 0.4 mg HS PO Last administered on 06/09/16 21:53; Admin Dose 0.4 MG; Start 06/06/16 at 21:00 Atorvastatin Calcium (Lipitor) 40 mg HS PO Last administered on 06/09/16 21:53 ; Admin Dose 40 MG; Start 06/06/16 at 21:00 Clopidogrel Bisulfate (plaVIX) 75 mg DAILY PO Last administered on 06/12/16 08: 50; Admin Dose 75 MG; Start 06/07/16 at 09:00 Docusate Sodium/ Ferrous Fumarate (Bridget-Sequels) 1 tab BID PO Last administered on 06/11/16 08:42; Admin Dose 1 TAB; Start 06/06/16 at 21:00 Levothyroxine Sodium (Synthroid) 200 mcg DAILY@06 PO Last administered on 06:34; Admin Dose 200 MCG; Start 06/07/16 at 06:00 Furosemide (Lasix) 40 mg DAILY PO Last administered on 06/12/16 08:50; Admin Dose 40 MG; Start 06/07/16 at 09:00 Metoprolol Succinate (Toprol Xl) 25 mg BID PO Last administered on 06/12/16 08: 49; Admin Dose 25 MG; Start 06/06/16 at 21:00 Hydralazine HCl 10 mg 10 mg Q4H PRN IV ELEVATED SYSTOLIC BP Last administered on 06/11/16 19:29; Admin Dose 10 MG; Start 06/08/16 at 00:00 Ceftriaxone Sodium (Rocephin) 50 ml @ 100 mls/hr Q24H IVPB Last administered on 06/11/16 20:53; Admin Dose 100 MLS/HR; Start 06/10/16 at 21:00 Losartan Potassium (Cozaar) 100 mg DAILY PO Last administered on 06/12/16 08:49 ; Admin Dose 100 MG; Start 06/11/16 at 09:00 SIGIFREDO GIORDANO MD Jun 12, 2016 13:17
== END 2016-06-12 13:49 | disposition home health service (06) | DRG 193 ==
LOC: E/R 19:45 → MS4 22:06 → PP2 06-11 21:40
PROVIDERS: ADMIT Family Medicine; ATTEND Family Medicine
DX: J18.9 Pneumonia, unspecified organism (principal); J96.01 Acute respiratory failure with hypoxia; E11.65 Type 2 diabetes mellitus with hyperglycemia; S37.30XA Unspecified injury of urethra, initial encounter; F05 Delirium due to known physiological condition; E13.9 Other specified diabetes mellitus without complications; D50.9 Iron deficiency anemia, unspecified; N13.8 Other obstructive and reflux uropathy; I10 Essential (primary) hypertension; E66.9 Obesity, unspecified; I25.10 Atherosclerotic heart disease of native coronary artery without angina pectoris; N40.1 Benign prostatic hyperplasia with lower urinary tract symptoms; E78.5 Hyperlipidemia, unspecified; E03.9 Hypothyroidism, unspecified; Z95.5 Presence of coronary angioplasty implant and graft; Z68.33 Body mass index [BMI] 33.0-33.9, adult; Z86.73 Personal history of transient ischemic attack (TIA), and cerebral infarction without residual deficits; X58.XXXA Exposure to other specified factors, initial encounter; Y92.230 Patient room in hospital as the place of occurrence of the external cause; Z79.84 Long term (current) use of oral hypoglycemic drugs; Z78.1 Physical restraint status
CPT/HCPCS: 36415; 36600; 70450; 71010; 80048; 80053; 80061; 80202; 81001; 81003; 82550; 82553; 82565; 82803; 82962; 83036; 83540; 83605; 83735; 84439; 84443; 84484; 84520; 85025; 85610; 85730; 87040; 87081; 87086; 87400; 92526; 92610; 93005; 93306; 93965; 94640; 94664; 96374; 96375; J1940; J0360; J0692; J0696; J1650; J1815; J2060; J2250; J3010; J3370; J7030; J7040; J7050